=== PATIENT | male | born 1960 | race Caucasian/White ===

== ENCOUNTER 2019-06-05 12:13 | Emergency (ER) | payer MEDICARE ==
[~2019-06-05] VITALS: Ht 172.7 cm; Wt 99.8 kg
[~2019-06-05 12:13] MED LIST: ACHD5005 PO; ALBU17AE23 IH; ASPI-586 PO; CLC500CT PO; CLOP75TA69 PO; FAMO20TA5 PO; HYDR-3820 PO; HYDR1TAB PO; MELO-198 PO; METO-351 PO; OMEP20CA12 PO; PANT40TA2 PO; PRD20T PO; RABE20TA PO; SIMV40TA4 PO; TRAM50TA2 PO
[2019-06-05 12:38] LABS: BASOPHILS % (AUTO) 0 % (0-10); EOSINOPHILS # (AUTO) 0.1 10^3/uL (0.0-0.3); EOSINOPHILS % (AUTO) 1 % (0-10); HEMATOCRIT 46 % (40-54); HEMOGLOBIN 15.3 G/DL (13.3-17.7); LYMPHOCYTES # (AUTO) 1.7 X 10^3 (1.0-4.0); LYMPHOCYTES % (AUTO) 18 % (12-44); MEAN CORPUSCULAR HEMOGLOBIN 30 PG (25-34); MEAN CORPUSCULAR HGB CONC 34 G/DL (32-36); MEAN CORPUSCULAR VOLUME 90 FL (80-99); MEAN PLATELET VOLUME 10.6 FL (7.4-10.4); MONOCYTES # (AUTO) 0.6 X 10^3 (0.0-1.0); MONOCYTES % (AUTO) 6 % (0-12); NEUTROPHILS # (AUTO) 7.5 X 10^3 (1.8-7.8); NEUTROPHILS % (AUTO) 75 % (42-75); PLATELET COUNT 274 10^3/uL (130-400); RED CELL DISTRIBUTION WIDTH 13.8 % (10.0-14.5)
[2019-06-05 12:54] LABS: ALANINE AMINOTRANSFERASE 36 U/L (0-55); ALBUMIN 4.7 GM/DL (3.2-4.5); ALKALINE PHOSPHATASE 89 U/L (40-136); BILIRUBIN,TOTAL 0.3 MG/DL (0.1-1.0); BUN/CREATININE RATIO 14; CALCIUM 10.1 MG/DL (8.5-10.1); CARBON DIOXIDE 22 MMOL/L (21-32); CHLORIDE 104 MMOL/L (98-107); CREATININE SERUM 1.13 MG/DL (0.60-1.30); GFR ESTIMATED > 60; GLUCOSE 125 MG/DL (70-105); POTASSIUM 4.1 MMOL/L (3.6-5.0); SODIUM 139 MMOL/L (135-145); TOTAL PROTEIN 7.6 GM/DL (6.4-8.2)
--- NOTE | 2019-06-05 12:54 | ED EENT ---
History of Present Illness General Chief Complaint: Eye Problems Stated Complaint: BLURRED VISION Nursing Triage Note: PT SENT FROM DR GUARDADO OFFICE WITH COMPLAINT OF BLURRED VISION IN LEFT EYE. PT STATES BLURRED VISION STARTED 8 DAYS AGO. 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 Source: patient Exam Limitations: no limitations (JENNIFER DOUGLAS MD) History of Present Illness Date Seen by Provider: Jun 05, 2019 Time Seen by Provider: 12:19 Initial Comments Here with report of left vision loss over the last 8 days. He was sent over from the optometry clinic after exam today in which they noted concerns of edematous retina on the left. The joint cutter, Dr. Jarrell, was concerned about possibility of giant cell arteritis. He was sent here for further evaluation. Patient notes that he has had increasing vision loss dated day for the last 8 days and hasn't been able to drive for the last 4 days. Had similar problem with the right eye and has significant visual loss better. Timing/Duration: gradual Severity: moderate Location: eye (L) Prearrival Treatment: no prearrival treatment Associated Symptoms: No change in hearing, No facial pain/swelling, No fever (JENNIFER DOUGLAS MD) Allergies and Home Medications Allergies Coded Allergies: No Known Drug Allergies (Verified , 04/29/16) Home Medications Aspirin 81 Mg Tablet., 81 MG PO DAILY, (Reported) Clopidogrel Bisulfate 75 Mg Tablet, 75 MG PO DAILY Prescribed by: SANTHOSH BULLARD on 04/12/16 0943 Hydrocodone/Acetaminophen 1 Each Tablet, 1 EACH PO QID PRN for PAIN, (Reported) Metoprolol Succinate 25 Mg Tab.er.24h, 25 MG PO DAILY, (Reported) Pantoprazole Sodium 40 Mg Tablet., 40 MG PO DAILY Prescribed by: VALENTINA MARS on 05/02/16 0732 Simvastatin 40 Mg Tablet, 40 MG PO DAILY Prescribed by: SANTHOSH BULLARD on 04/12/16 0943 Patient Home Medication List Home Medication List Reviewed: Yes (JENNIFER DOUGLAS MD) Review of Systems Review of Systems Constitutional: see HPI; No chills, No fever Eyes: See HPI, Decreased Acuity; Denies Pain Ears: No Symptoms Reported Respiratory: no symptoms reported Cardiovascular: no symptoms reported Gastrointestinal: no symptoms reported Musculoskeletal: no symptoms reported Neurological: See HPI; Denies Headache, Denies Weakness (JENNIFER DOUGLAS MD) All Other Systems Reviewed Negative Unless Noted: Yes (JENNIFER DOUGLAS MD) Past Bwpjufo-Xfcirz-Kcmwqw Hx Past Med/Social Hx: Reviewed Nursing Past Med/Soc Hx (JENNIFER DOUGLAS MD) Patient Social History Alcohol Use: Regular Use Number of Drinks Today: 0 Alcohol Beverage of Choice: Beer Recreational Drug Use: No Smoking Status: Former Smoker Type Used: Cigarettes, Smokeless Tobacco Former Smoker, Quit: April 12, 1995 Recent Foreign Travel: No Contact w/Someone Who Travel: No Recent Infectious Disease Expo: No (JENNIFER DOUGLAS MD) Immunizations Up To Date Tetanus Booster (TDap): Less than 5yrs PED Vaccines UTD: Yes (JENNIFER DOUGLAS MD) Past Medical History Surgeries: Yes (hernia repair, Broken leg repair, R KNEE repair, HEART CATH) Respiratory: Yes (SOB AT END OF DAY) Cardiac: Yes (HEART CATH-04/13, NO STENTS BUT CLEANED OUT ARTERY) Coronary Artery Disease, Heart Attack, Hypertension Neurological: No Reproductive Disorders: No Gastrointestinal: Yes Gastroesophageal Reflux, Hiatal Hernia Musculoskeletal: Yes (ARTHRITIS) Arthritis, Gout Endocrine: No Cancer: No Psychosocial: No Integumentary: No Blood Disorders: No Adverse Reaction/Blood Tranf: No (JENNIFER DOUGLAS MD) Family Medical History Reviewed Nursing Family Hx (JENNIFER DOUGLAS MD) Cancer Cataract Dementia Family history: Alzheimer's disease Family history: Arthritis Family history: Breast disease Family history: Diabetes mellitus Family history: Glaucoma Family history: Hypertension History of drug abuse No Family History of: Abdominal aortic aneurysm Vimal's disease Alcoholism Aphasia Cancer of colon Chest pain Congenital heart disease Congestive heart failure Cystic fibrosis Dysphagia Family history: Allergy Family history: Asthma Family history: Cardiovascular disease Family history: Coronary thrombosis Family history: Gastrointestinal disease Family history: Osteoporosis Family history: Thyroid disorder Headache Hearing loss Heart disease Hereditary disease History of - anemia History of - disorder History of - respiratory disease Human immunodeficiency virus (HIV) seropositivity Hypercholesterolemia Infertile Kidney disease Malignant neoplasm of lung Myocardial infarction Parkinson's disease Prostate cancer Psychotic disorder Seizure disorder Stroke Tuberculosis Visual impairment Cancer, Diabetes, Hypertension (JENNIFER DOUGLAS MD) Physical Exam Vital Signs Vital Signs - First Documented 06/05/19 12:14 Temp 97.5 Pulse 79 Resp 16 B/P (MAP) 151/86 (107) Pulse Ox 97 O2 Delivery Room Air (DEVORAH BOWMAN MD) Height, Weight, BMI Height: 5'8.00" Weight: 220lbs. 0.0oz. [id number]; 31.9 BMI Method:Stated General Appearance: WD/WN, no apparent distress Eyes: bilateral eye other (bilateral eyes medically dilated prior to presentation here.) Mouth/Throat: normal mouth inspection, pharynx normal Neck: full range of motion, supple Cardiovascular: regular rate, rhythm, no murmur Respiratory: lungs clear, normal breath sounds Gastrointestinal: non tender, soft Neurologic/Psychiatric: alert, oriented x 3, other (normal gait in resolving extremities 4 without difficulty) Skin: normal color, warm/dry (JENNIFER DOUGLAS MD) Progress/Results/Core Measures Results/Orders Lab Results Laboratory Tests Test 06/05/19 12:30 Range/Units White Blood Count 10.0 4.3-11.0 10^3/uL Red Blood Count 5.05 4.35-5.85 10^6/uL Hemoglobin 15.3 13.3-17.7 G/DL Hematocrit 46 40-54 % Mean Corpuscular Volume 90 80-99 FL Mean Corpuscular Hemoglobin 30 25-34 PG Mean Corpuscular Hemoglobin Concent 34 32-36 G/DL Red Cell Distribution Width 13.8 10.0-14.5 % Platelet Count 274 130-400 10^3/uL Mean Platelet Volume 10.6 H 7.4-10.4 FL Neutrophils (%) (Auto) 75 42-75 % Lymphocytes (%) (Auto) 18 12-44 % Monocytes (%) (Auto) 6 0-12 % Eosinophils (%) (Auto) 1 0-10 % Basophils (%) (Auto) 0 0-10 % Neutrophils # (Auto) 7.5 1.8-7.8 X 10^3 Lymphocytes # (Auto) 1.7 1.0-4.0 X 10^3 Monocytes # (Auto) 0.6 0.0-1.0 X 10^3 Eosinophils # (Auto) 0.1 0.0-0.3 10^3/uL Basophils # (Auto) 0.0 0.0-0.1 10^3/uL Erythrocyte Sedimentation Rate 5 0-30 MM/HR Sodium Level 139 135-145 MMOL/L Potassium Level 4.1 3.6-5.0 MMOL/L Chloride Level 104 98-107 MMOL/L Carbon Dioxide Level 22 21-32 MMOL/L Anion Gap 13 5-14 MMOL/L Blood Urea Nitrogen 16 7-18 MG/DL Creatinine 1.13 0.60-1.30 MG/DL Estimat Glomerular Filtration Rate > 60 BUN/Creatinine Ratio 14 Glucose Level 125 H 70-105 MG/DL Calcium Level 10.1 8.5-10.1 MG/DL Corrected Calcium 8.5-10.1 MG/DL Total Bilirubin 0.3 0.1-1.0 MG/DL Aspartate Amino Transf (AST/SGOT) 20 5-34 U/L Alanine Aminotransferase (ALT/SGPT) 36 0-55 U/L Alkaline Phosphatase 89 40-136 U/L C-Reactive Protein High Sensitivity 0.35 0.00-0.50 MG/DL Total Protein 7.6 6.4-8.2 GM/DL Albumin 4.7 H 3.2-4.5 GM/DL (DEVORAH BOWMAN MD) Vital Signs/I&O 06/05/19 12:14 Temp 97.5 Pulse 79 Resp 16 B/P (MAP) 151/86 (107) Pulse Ox 97 O2 Delivery Room Air (DEVORAH BOWMAN MD) Blood Pressure Mean: 107 Progress Progress Note : Progress Note Seen and evaluated. IV, labs and CT head ordered per request of joint cutter including sedimentation rate and CRP. Monitor patient. (JENNIFER DOUGLAS MD) Departure Communication (Admissions) The CT scan returned without any evidence of vascular impairment. Discussed this with Dr. jarrell joint cutter who had referred him here. She will arrange for appointment to be made back [facility] and they will inform the patient (DEVORAH BOWMAN MD) Impression Primary Impression: subacute visual loss Disposition: 01 HOME, SELF-CARE Condition: Stable/Unchanged Departure-Patient Inst. Referrals: [facility] (PCP/Family) Primary Care Physician Add. Discharge Instructions: All discharge instructions reviewed with patient and/or family. Voiced understanding. I have spoken to [facility] and [facility] will be calling you back with a appointment when it has been confirmed. Do not drive JENNIFER DOUGLAS MD Jun 05, 2019 12:54 DEVORAH BOWMAN MD Jun 05, 2019 13:34
[2019-06-05 13:01] LABS: ERYTHROCYTE SEDIMENTATION RATE 5 MM/HR (0-30)
--- NOTE | 2019-06-05 13:08 | Diagnostic Imaging Report ---
PROCEDURE: CT head without contrast. TECHNIQUE: Multiple contiguous axial images were obtained through the brain without the use of intravenous contrast. Auto Exposure Controls were utilized during the CT exam to meet ALARA standards for radiation dose reduction. INDICATION: Blurry vision in the left eye for eight days. History of stroke. COMPARISON: 11/16/2016. FINDINGS: The ventricles and cortical sulci appear age appropriate. There is no midline shift or mass effect. No acute intracranial hemorrhage is seen. There is no CT evidence of acute territorial ischemia. The calvarium is intact. Visualized paranasal sinuses appear clear. IMPRESSION: 1. No acute intracranial hemorrhage or CT evidence of acute territorial ischemia. Dictated by: Dictated on workstation # [id number]
[2019-06-05 14:04] VITALS: BP 142/86
== END 2019-06-05 14:04 | disposition home or self-care (01) ==
LOC: EDUNIT# 12:13 → ER 12:14
DX: H54.7 Unspecified visual loss (principal); I10 Essential (primary) hypertension; I25.10 Atherosclerotic heart disease of native coronary artery without angina pectoris; I25.2 Old myocardial infarction; K21.9 Gastro-esophageal reflux disease without esophagitis; Z87.19 Personal history of other diseases of the digestive system; Z86.73 Personal history of transient ischemic attack (TIA), and cerebral infarction without residual deficits; Z79.82 Long term (current) use of aspirin; Z79.02 Long term (current) use of antithrombotics/antiplatelets; Z87.891 Personal history of nicotine dependence
CPT/HCPCS: 36415; 70450; 80053; 85025; 85652; 86141

== ENCOUNTER 2021-11-04 08:35 | Observation (INO) | payer MEDICARE ==
[~2021-11-04] VITALS: Ht 172 cm; Wt 100.0 kg
[~2021-11-04 08:35] MED LIST changes: +ACHYD1T PO; -HYDR-3820 PO; +SIMV40TA25 PO; -SIMV40TA4 PO
[2021-11-04] MEDS ORDERED: FAMOTIDINE 20MG/2ML IV (PEPCID) IV STA (08:56)
[2021-11-04] MEDS ORDERED: NS IV 1000 ML 1,000 ML IV STA (08:56)
[2021-11-04] MEDS ORDERED: ASPIRIN 81 MG CHEW (CHILDREN'S ASA) PO ONE (09:00)
[2021-11-04] MEDS ORDERED: RT-ALBUTEROL/IPRATROPIUM 3 ML (DUONEB) VIAL INH ONE (09:00)
[2021-11-04] MEDS ORDERED: LIDOCAINE 2% VISCOUS 15 ML UDC PO ONE (09:00)
[2021-11-04] MEDS ORDERED: ANTACID SUSP 30 ML UDC (MYLANTA) PO ONE (09:00)
[2021-11-04] MEDS ORDERED: NITROGLYCERIN 0.4 MG SL TABS BTL 25'S SL PRN (09:00)
--- NOTE | 2021-11-04 09:01 | ED Chest Pain ---
General Chief Complaint: Chest Pain Stated Complaint: CHEST PAIN Source: patient Exam Limitations: no limitations History of Present Illness Date Seen by Provider: Nov 04, 2021 Time Seen by Provider: 08:45 Initial Comments Benji Mayorga is a 61 yo M with a history of CAD, COPD, HTN, T2DM, and GERD who presents via private conveyance today for complaint of chest pain and cough. Patient states he woke up this morning after feeling like he aspirated his acid reflux. He describes a sharp L sided chest pain with associated cough, sob, and vomiting. Rates the pain 10/10 at its worst. Pain worsens with cough and he took nitro before coming to the ED which temporarily helped. Pain does not radiate. Pt states he had an episode like this in the past when he was told he was actually having a PA. Also reports recent URI treated with azithromycin. Denies any recent fevers, chills, adbominal pain, gi/gu changes. 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 Associated Symptoms: abdominal pain, heartburn, nausea/vomiting, shortness of breath Allergies and Home Medications Allergies Coded Allergies: No Known Drug Allergies (Verified , 04/29/16) Patient Home Medication List Aspirin (Aspir 81) 81 Mg Tablet., 81 MG PO DAILY, (Reported) Entered as Reported by: ASHLY MONTANA on 04/12/16716 Clopidogrel Bisulfate (Plavix) 75 Mg Tablet, 75 MG PO DAILY Prescribed by: SANTHOSH BULLARD on 04/12/16 0943 Hydrocodone Bit/Acetaminophen (HYDROcodone/APAP 10/325 TABLET) 1 Each Tablet, 1 EACH PO QID PRN for PAIN, (Reported) Entered as Reported by: ASHLY MONTANA on 04/12/16716 Metoprolol Succinate (Toprol Xl) 25 Mg Tab.er.24h, 25 MG PO DAILY, (Reported) Entered as Reported by: ASHLY MONTANA on 04/12/16716 Pantoprazole Sodium (Protonix) 40 Mg Tablet., 40 MG PO DAILY Prescribed by: VALENTINA MARS on 05/02/16 0732 Simvastatin (Simvastatin) 40 Mg Tablet, 40 MG PO DAILY Prescribed by: SANTHOSH BULLARD on 04/12/16 0943 Review of Systems Review of Systems Constitutional: No chills, No diaphoresis EENTM: Blurred Vision (normal for him) Respiratory: Cough, Shortness of Air Cardiovascular: Chest Pain Gastrointestinal: Abdominal Pain, Nausea, Vomiting Genitourinary: Denies Burning, Denies Discharge Musculoskeletal: No back pain; gout Skin: No change in color, No change in hair/nails Psychiatric/Neurological: Denies Anxiety, Denies Depressed Endocrine: Denies Excessive Sweating, Denies Flushing Hematologic/Lymphatic: Denies Easy Bruising, Denies Swollen Glands Past Mcjguzf-Ptzutp-Knsumj Hx Immunizations Up To Date Tetanus Booster (TDap): Less than 5yrs PED Vaccines UTD: Yes Past Medical History Surgeries: Yes (hernia repair, Broken leg repair, R KNEE repair, HEART CATH) Respiratory: Yes (SOB AT END OF DAY) Cardiac: Yes (HEART CATH-04/13, NO STENTS BUT CLEANED OUT ARTERY) Coronary Artery Disease, Heart Attack, Hypertension Neurological: No Reproductive Disorders: No Gastrointestinal: Yes Gastroesophageal Reflux, Hiatal Hernia Musculoskeletal: Yes (ARTHRITIS) Arthritis, Gout Endocrine: No Cancer: No Psychosocial: No Integumentary: No Blood Disorders: No Adverse Reaction/Blood Tranf: No Family Medical History Cancer Cataract Dementia Family history: Alzheimer's disease Family history: Arthritis Family history: Breast disease Family history: Diabetes mellitus Family history: Glaucoma Family history: Hypertension History of drug abuse No Family History of: Abdominal aortic aneurysm Denver's disease Alcoholism Aphasia Cancer of colon Chest pain Congenital heart disease Congestive heart failure Cystic fibrosis Dysphagia Family history: Allergy Family history: Asthma Family history: Cardiovascular disease Family history: Coronary thrombosis Family history: Gastrointestinal disease Family history: Osteoporosis Family history: Thyroid disorder Headache Hearing loss Heart disease Hereditary disease History of - anemia History of - disorder History of - respiratory disease Human immunodeficiency virus (HIV) seropositivity Hypercholesterolemia Infertile Kidney disease Malignant neoplasm of lung Myocardial infarction Parkinson's disease Prostate cancer Psychotic disorder Seizure disorder Stroke Tuberculosis Visual impairment Cancer, Diabetes, Hypertension Physical Exam Vital Signs Capillary Refill : Height, Weight, BMI Height: 5'8.00" Weight: 220lbs. 0.0oz. [id number]; 31.9 BMI Method:Stated General Appearance: Chronically ill, Moderate Distress HEENT: Normal ENT Inspection, Pharynx Normal Neck: Non Tender, Supple Respiratory: Lungs Clear, Normal Breath Sounds Cardiovascular: Normal Peripheral Pulses, Tachycardia Gastrointestinal: Normal Bowel Sounds, Tenderness (epigastric) Extremity: Non Tender, No Calf Tenderness Neurologic/Psychiatric: Alert, Oriented x3, No Motor/Sensory Deficits, Normal Mood/Affect, automotive sales executive II-XII Norm as Tested Skin: Normal Color, Warm/Dry Lymphatic: No Adenopathy Departure Departure-Patient Inst. Referrals: [facility] (PCP/Family) Primary Care Physician NEDRA REGAN MED STUDENT Nov 04, 2021 09:01
--- NOTE | 2021-11-04 09:04 | ED Chest Pain ---
General Chief Complaint: Chest Pain Stated Complaint: CHEST PAIN Source: patient, family (lo daughter) Exam Limitations: no limitations History of Present Illness Date Seen by Provider: Nov 04, 2021 Time Seen by Provider: 08:40 Initial Comments Patient ER by private conveyance with chief complaint of being awoken from sleep about 745 with regurgitating/aspirating some GERD which resulted and chest pain. He received a dose of nitroglycerin x1 which helped. He takes aspirin on a daily basis but has not had any today. He is not on Plavix. 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 Chest pain on deep inspiration coughing and wheezing. He has a history of COPD, hypertension, hyperlipidemia and diabetes. No stents. No fevers or chills. He says the last time this happened when he aspirated some of his acid reflux he had a heart attack. Does not wear oxygen at baseline. Allergies and Home Medications Allergies Coded Allergies: No Known Drug Allergies (Verified , 04/29/16) Patient Home Medication List Home Medication List Reviewed: Yes Albuterol Sulfate (Proair Hfa) 1 Puff Puff, 2 PUFF IH Q6H PRN for SHORTNESS OF BREATH, (Reported) Entered as Reported by: FABBY DAVIS on 11/04/211535 Last Action: Reviewed Aspirin (Aspirin EC) 81 Mg Tablet.dr, 81 MG PO DAILY, (Reported) Entered as Reported by: FABBY DAVIS on 11/04/211535 Last Action: Reviewed Calcium Carbonate (Tums) 300 Mg Tab.chew, 300-600 MG PO Q6H PRN for INDIGESTION, (Reported) Entered as Reported by: FABBY DAVIS on 11/04/211535 Last Action: Reviewed Canagliflozin (Invokana) 100 Mg Tablet, 100 MG PO DAILY, (Reported) Entered as Reported by: FABBY DAVIS on 11/04/211535 Last Action: Reviewed Hydrocodone/Acetaminophen (Hydrocodone-Acetamin 10-325 mg) 1 Each Tablet, 1 EACH PO Q6H PRN for PAIN-MODERATE (5-7), (Reported) Entered as Reported by: FABBY DAVIS on 11/04/211535 Last Action: Reviewed Mag Hydrox/Al Hydrox/Simeth (Mylanta Suspension) 30 Ml Oral.susp, 30 ML PO QID PRN for INDIGESTION, (Reported) Entered as Reported by: FABBY DAVIS on 11/04/21 154 Last Action: Reviewed Metformin HCl (Metformin HCl ER) 500 Mg Tab.er.24, 1,000 MG PO BID, (Reported) Entered as Reported by: FABBY DAVIS on 11/04/211537 Last Action: Reviewed Metoprolol Succinate (Metoprolol Succinate) 100 Mg Tab.er.24h, 100 MG PO BID, (Reported) Entered as Reported by: FABBY DAVIS on 11/04/211535 Last Action: Reviewed Nitroglycerin (Nitroglycerin) 0.4 Mg Tab.subl, 0.4 MG SL UD PRN for CHEST PAIN, (Reported) Entered as Reported by: FABBY DAVIS on 11/04/211535 Last Action: Reviewed Pantoprazole Sodium (Pantoprazole Sodium) 20 Mg Tablet.dr, 20 MG PO DAILY, (Reported) Entered as Reported by: FABBY DAVIS on 11/04/211535 Last Action: Reviewed Discontinued Medications Aspirin (Aspir 81) 81 Mg Tablet.dr, 81 MG PO DAILY, (Reported) Discontinued Reason: No Longer Taking Entered as Reported by: ASHLY MONTANA on 04/12/16716 Last Action: Discontinued Clopidogrel Bisulfate (Plavix) 75 Mg Tablet, 75 MG PO DAILY Discontinued Reason: No Longer Taking Prescribed by: SANTHOSH FISHER on 04/12/16942 Last Action: Discontinued Hydrocodone Bit/Acetaminophen (HYDROcodone/APAP 10/325 TABLET) 1 Each Tablet, 1 EACH PO QID PRN for PAIN, (Reported) Discontinued Reason: No Longer Taking Entered as Reported by: ASHLY MONTANA on 04/12/16716 Last Action: Discontinued Metoprolol Succinate (Toprol Xl) 25 Mg Tab.er.24h, 25 MG PO DAILY, (Reported) Discontinued Reason: No Longer Taking Entered as Reported by: ASHLY MONTANA on 04/12/16716 Last Action: Discontinued Pantoprazole Sodium (Protonix) 40 Mg Tablet.dr, 40 MG PO DAILY Discontinued Reason: No Longer Taking Prescribed by: VALENTINA MARS on 05/02/16731 Last Action: Discontinued Simvastatin (Simvastatin) 40 Mg Tablet, 40 MG PO DAILY Discontinued Reason: No Longer Taking Prescribed by: SANTHOSH FISHER on 04/12/16 0943 Last Action: Discontinued Review of Systems Review of Systems Constitutional: No chills, No malaise EENTM: No Blurred Vision, No Double Vision Respiratory: Cough, Shortness of Air Cardiovascular: Chest Pain; Denies Lightheadedness Gastrointestinal: See HPI; Denies Abdominal Pain, Denies Constipated, Denies Diarrhea, Denies Nausea Genitourinary: Denies Burning, Denies Discharge Musculoskeletal: No back pain, No joint pain All Other Systems Reviewed Negative Unless Noted: Yes Past Qnsnoxo-Zqunsh-Gpgohg Hx Patient Social History Tobacco Use?: No Use of E-Cig and/or Vaping dev: No Substance use?: No Immunizations Up To Date Tetanus Booster (TDap): Less than 5yrs PED Vaccines UTD: Yes Past Medical History Surgeries: Yes (hernia repair, Broken leg repair, R KNEE repair, HEART CATH) Respiratory: Yes (SOB AT END OF DAY) Cardiac: Yes (HEART CATH-04/13, NO STENTS BUT CLEANED OUT ARTERY) Coronary Artery Disease, Heart Attack, Hypertension Neurological: No Reproductive Disorders: No Gastrointestinal: Yes Gastroesophageal Reflux, Hiatal Hernia Musculoskeletal: Yes (ARTHRITIS) Arthritis, Gout Endocrine: No Cancer: No Psychosocial: No Integumentary: No Blood Disorders: No Adverse Reaction/Blood Tranf: No Family Medical History Cancer Cataract Dementia Family history: Alzheimer's disease Family history: Arthritis Family history: Breast disease Family history: Diabetes mellitus Family history: Glaucoma Family history: Hypertension History of drug abuse No Family History of: Abdominal aortic aneurysm Vimal's disease Alcoholism Aphasia Cancer of colon Chest pain Congenital heart disease Congestive heart failure Cystic fibrosis Dysphagia Family history: Allergy Family history: Asthma Family history: Cardiovascular disease Family history: Coronary thrombosis Family history: Gastrointestinal disease Family history: Osteoporosis Family history: Thyroid disorder Headache Hearing loss Heart disease Hereditary disease History of - anemia History of - disorder History of - respiratory disease Human immunodeficiency virus (HIV) seropositivity Hypercholesterolemia Infertile Kidney disease Malignant neoplasm of lung Myocardial infarction Parkinson's disease Prostate cancer Psychotic disorder Seizure disorder Stroke Tuberculosis Visual impairment Cancer, Diabetes, Hypertension Physical Exam Vital Signs Vital Signs - First Documented 11/04/21 11/04/21 08:36 08:55 Temp 36.0 Pulse 123 Resp 18 B/P (MAP) 121/110 (114) O2 Delivery Room Air O2 Flow Rate 2.00 FiO2 98 Capillary Refill : Height, Weight, BMI Height: 5'8.00" Weight: 220lbs. 0.0oz. 99.765050gr; 31.9 BMI Method:Stated General Appearance: Anxious, Moderate Distress, Obese HEENT: PERRL/EOMI, Pharynx Normal; No Moist Mucous Membranes Neck: Full Range of Motion, Normal Inspection Respiratory: Chest Non Tender, No Accessory Muscle Use, Respiratory Distress (Mild to moderate with oxygen saturations 98% and tachypnea, 30 breaths/min) Cardiovascular: Regular Rate, Rhythm, Normal Peripheral Pulses Gastrointestinal: Normal Bowel Sounds, Non Tender, Soft Extremity: Normal Capillary Refill, Normal Inspection, Normal Range of Motion, No Pedal Edema Neurologic/Psychiatric: Alert, Oriented x3, No Motor/Sensory Deficits Skin: Normal Color, Warm/Dry Progress/Results/Core Measures Results/Orders Lab Results Laboratory Tests Test 11/04/21 08:58 11/04/21 09:05 Range/Units White Blood Count 11.4 H 4.3-11.0 10^3/uL Red Blood Count 5.24 4.30-5.52 10^6/uL Hemoglobin 15.8 13.3-17.7 g/dL Hematocrit 48 40-54 % Mean Corpuscular Volume 92 80-99 fL Mean Corpuscular Hemoglobin 30 25-34 pg Mean Corpuscular Hemoglobin Concent 33 32-36 g/dL Red Cell Distribution Width 13.0 10.0-14.5 % Platelet Count 347 130-400 10^3/uL Mean Platelet Volume 10.9 9.0-12.2 fL Immature Granulocyte % (Auto) 1 % Neutrophils (%) (Auto) 55 42-75 % Lymphocytes (%) (Auto) 36 12-44 % Monocytes (%) (Auto) 7 0-12 % Eosinophils (%) (Auto) 1 0-10 % Basophils (%) (Auto) 0 0-10 % Neutrophils # (Auto) 6.2 1.8-7.8 10^3/uL Lymphocytes # (Auto) 4.1 H 1.0-4.0 10^3/uL Monocytes # (Auto) 0.8 0.0-1.0 10^3/uL Eosinophils # (Auto) 0.2 0.0-0.3 10^3/uL Basophils # (Auto) 0.0 0.0-0.1 10^3/uL Immature Granulocyte # (Auto) 0.1 0.0-0.1 10^3/uL Prothrombin Time 12.9 12.2-14.7 SEC INR Comment 0.9 0.8-1.4 Activated Partial Thromboplast Time 30 24-35 SEC Sodium Level 135 135-145 MMOL/L Potassium Level 4.1 3.6-5.0 MMOL/L Chloride Level 101 98-107 MMOL/L Carbon Dioxide Level 18 L 21-32 MMOL/L Anion Gap 16 H 5-14 MMOL/L Blood Urea Nitrogen 11 7-18 MG/DL Creatinine 1.31 H 0.60-1.30 MG/DL Estimat Glomerular Filtration Rate 55 BUN/Creatinine Ratio 8 Glucose Level 298 H 70-105 MG/DL Calcium Level 9.4 8.5-10.1 MG/DL Corrected Calcium 9.1 8.5-10.1 MG/DL Magnesium Level 2.7 H 1.6-2.4 MG/DL Total Bilirubin 0.4 0.1-1.0 MG/DL Aspartate Amino Transf (AST/SGOT) 15 5-34 U/L Alanine Aminotransferase (ALT/SGPT) 21 0-55 U/L Alkaline Phosphatase 115 40-136 U/L Myoglobin 30.6 10.0-92.0 NG/ML Troponin I < 0.028 <0.028 NG/ML B-Type Natriuretic Peptide < 10.0 <100.0 PG/ML Total Protein 7.6 6.4-8.2 GM/DL Albumin 4.4 3.2-4.5 GM/DL Lipase 35 8-78 U/L Blood Gas Puncture Site RT RAD Blood Gas Patient Temperature 36.0 Arterial Blood pH 7.42 7.37-7.43 Arterial Blood Partial Pressure CO2 30 L 35-45 MMHG Arterial Blood Partial Pressure O2 91 79-93 MMHG Arterial Blood HCO3 19 L 23-27 MMOL/L Arterial Blood Total CO2 20.2 L 21.0-31.0 MMOL/L Arterial Blood Oxygen Saturation 98 94-100 % Arterial Blood Base Excess -4.6 L -2.5-2.5 MMOL/L Ayan Test YES-POS Blood Gas Ventilator Setting NO Blood Gas Inspired Oxygen 2 L My Orders Orders - RAMSES SMALL Albuterol/Ipra Inhalation Soln (Duoneb I (11/04/21 09:00) Svn Small Volume Nebulizer (11/04/21 08:46) Cbc With Automated Diff (11/04/21 08:56) Magnesium (11/04/21 08:56) Chest 1 View, Ap/Pa Only (11/04/21 08:56) Ekg Tracing (11/04/21 08:56) Comprehensive Metabolic Panel (11/04/21 08:56) Myoglobin Serum (11/04/21 08:56) Protime With Inr (11/04/21 08:56) Partial Thromboplastin Time (11/04/21 08:56) O2 (11/04/21 08:56) Monitor-Rhythm Ecg Trace Only (11/04/21 08:56) Lipid Panel (11/05/21 06:00) Ed Iv/Invasive Line Start (11/04/21 08:56) Lipase (11/04/21 08:56) Bnp [place] (11/04/21 08:56) Troponin I [place] (11/04/21 08:56) Nitroglycerin 0.4 Mg Btl 25's (Nitrostat (11/04/21 09:00) Aspirin Chewable Tablet (Baby Aspirin Ch (11/04/21 09:00) Lidocaine 2% Viscous 15 Ml (Xylocaine Vi (11/04/21 09:00) Ns Iv 1000 Ml (Sodium Chloride 0.9%) (11/04/21 08:56) Antacid Suspension (Mylanta Suspension (11/04/21 09:00) Famotidine Injection (Pepcid Injection) (11/04/21 08:56) Arterial Blood Gas (11/04/21 09:02) Piperacillin Sodium/Tazobactam (Zosyn Vi (11/04/21 09:45) Medications Given in ED Current Medications Medications Dose Ordered Sig/Natanael Route Start Time Stop Time Status Last Admin Dose Admin Al Hydrox/Mg Hydrox/Simethicone 30 ml ONCE ONCE PO 11/04/21 09:00 11/04/21 09:01 DC 11/04/21 09:23 30 ML Albuterol/ Ipratropium 3 ml ONCE ONCE INH 11/04/21 09:00 11/04/21 09:01 DC 11/04/21 08:55 3 ML Aspirin 324 mg ONCE ONCE PO 11/04/21 09:00 11/04/21 09:01 DC 11/04/21 09:23 324 MG Lidocaine HCl 15 ml ONCE ONCE PO 11/04/21 09:00 11/04/21 09:01 DC 11/04/21 09:23 15 ML Nitroglycerin 0.4 mg UD PRN SL 11/04/21 09:00 11/04/21 11:20 DC 11/04/21 09:23 0.4 MG Piperacillin Sod/ Tazobactam Sod 4.5 gm/Sodium Chloride 100 ml @ 200 mls/hr ONCE ONCE IV 11/04/21 09:45 11/04/21 10:14 DC 11/04/21 09:58 200 MLS/HR Vital Signs/I&O 11/04/21 11/04/21 08:36 08:55 Temp 36.0 Pulse 123 Resp 18 B/P (MAP) 121/110 (114) O2 Delivery Room Air Nasal Cannula O2 Flow Rate 2.00 FiO2 98 Progress Progress Note : Time: 09:02 Progress Note Suspect aspiration or microaspiration. We will get a chest x-ray give him some aspirin check some troponins. Atypical angina? Give a liter of fluids, GI cocktail and another nitroglycerin if it will help. Blood pressure 160s over 100. Initial ECG Impression Date: Nov 04, 2021 Initial ECG Impression Time: 08:38 Initial ECG Rate: 107 Initial ECG Rhythm: S.Tach Initial ECG Intervals: Normal Initial ECG Impression: Normal Comment Sinus tachycardia without ST elevation or depression Diagnostic Imaging Diagonstic Imaging: Xray Plain Films/CT/US/NM/MRI: chest Reviewed: Reviewed by Me Departure Communication (Admissions) Time/Spoke to Admitting Phy: 12:00 Discussed the case with Dr. Miranda and she agrees to observe the patient with consultation to cardiology. Zosyn IV Time/Spoke to Consulting Phy: 12:00 Discussed the case with Dr. Fisher and he agrees to consult on the case continuing all medications Impression Primary Impression: Chest pain Qualified Codes: R07.9 - Chest pain, unspecified Additional Impression: Aspiration pneumonia Qualified Codes: J69.0 - Pneumonitis due to inhalation of food and vomit Disposition: ADMITTED INPATIENT Condition: Stable Admissions Decision to Admit Reason: Admit from ER (General) Decision to Admit/Date: Nov 04, 2021 Time/Decision to Admit Time: 12:00 Departure-Patient Inst. Referrals: [facility] (PCP/Family) Primary Care Physician RAMSES SMALL Nov 04, 2021 09:04
[2021-11-04 09:11] LABS: ABG BASE EXCESS -4.6 MMOL/L (-2.5-2.5); ABG OXYGEN SATURATION 98 % (94-100); ABG PCO2 30 MMHG (35-45); ABG PH 7.42 (7.37-7.43); ABG PO2 91 MMHG (79-93); ABG TCO2 20.2 MMOL/L (21.0-31.0)
[2021-11-04 09:12] LABS: BASOPHILS % (AUTO) 0 % (0-10); EOSINOPHILS # (AUTO) 0.2 10^3/uL (0.0-0.3); EOSINOPHILS % (AUTO) 1 % (0-10); HEMATOCRIT 48 % (40-54); HEMOGLOBIN 15.8 g/dL (13.3-17.7); LYMPHOCYTES # (AUTO) 4.1 10^3/uL (1.0-4.0); LYMPHOCYTES % (AUTO) 36 % (12-44); MEAN CORPUSCULAR HEMOGLOBIN 30 pg (25-34); MEAN CORPUSCULAR HGB CONC 33 g/dL (32-36); MEAN CORPUSCULAR VOLUME 92 fL (80-99); MEAN PLATELET VOLUME 10.9 fL (9.0-12.2); MONOCYTES # (AUTO) 0.8 10^3/uL (0.0-1.0); MONOCYTES % (AUTO) 7 % (0-12); NEUTROPHILS # (AUTO) 6.2 10^3/uL (1.8-7.8); NEUTROPHILS % (AUTO) 55 % (42-75); PLATELET COUNT 347 10^3/uL (130-400); WHITE BLOOD COUNT 11.4 10^3/uL (4.3-11.0)
[2021-11-04 09:14] LABS: ALLENS TEST YES-POS; INSPIRED O2 2 L; VENTILATOR NO
[2021-11-04 09:20] LABS: ALBUMIN 4.4 GM/DL (3.2-4.5); POTASSIUM 4.1 MMOL/L (3.6-5.0)
[2021-11-04 09:21] LABS: CALCIUM 9.4 MG/DL (8.5-10.1)
[2021-11-04 09:22] LABS: INR 0.9 (0.8-1.4); PROTHROMBIN TIME PATIENT 12.9 SEC (12.2-14.7)
[2021-11-04 09:23] LABS: TOTAL PROTEIN 7.6 GM/DL (6.4-8.2)
[2021-11-04 09:24] LABS: BILIRUBIN,TOTAL 0.4 MG/DL (0.1-1.0)
[2021-11-04 09:26] LABS: CREATININE SERUM 1.31 MG/DL (0.60-1.30)
--- NOTE | 2021-11-04 09:26 | Diagnostic Imaging Report ---
INDICATION: Chest pain AP view of chest is obtained with comparison made to study of 04/09/2011. FINDINGS: Heart size and pulmonary vascularity are within normal limits, and the lungs are clear, bilaterally. IMPRESSION: Unremarkable chest. Dictated by: Dictated on workstation # [id number]
[2021-11-04 09:29] LABS: MAGNESIUM 2.7 MG/DL (1.6-2.4)
[2021-11-04] MEDS ORDERED: PIPERACILLIN SODIUM/TAZOBACTAM 4.5 GM in NS (IVPB) 100 ML IV ONE (09:45)
--- NOTE | 2021-11-04 11:08 | Consultation-Cardiology ---
HPI-Cardiology Cardiology Consultation: Date of Consultation 11/04/21 Time Seen by a Provider: 11:05 Date of Admission 11-04-21 Attending Physician Jolie Miranda MD Admitting Physician [place] Consulting Physician Mu Fisher MD HPI: Chief Complaint: Chest pain Mr. Mayorga is a 61 yr old male admitted to [facility] from the ED with c/o chest pain. He reports he woke up from sleep this morning with acid reflux; which he chronically has. He reports he feels he has aspirated. He reports cough. He reports "burning in his esophagus". He states he is having left sided chest discomfort when he coughs. He reports he took a nitro sublingual for the burning and pressure in his chest at home which did not provide any relief. He reports he has chronic SOB which has been progressive. He reports he has episodes of left sided chest pain approx twice a month for which he will take a nitro sublingual at times. He reports the discomfort is a pressure, assoc diaphoresis at times with the discomfort. He denies any change in his chronic SOB during chest discomfort episodes. He reports if he does not take a nitro the discomfort will resolve within about 20-30 minutes. The discomfort occurs without r/t activity or emotional stress. He denies any LE swelling. He reports he continues to chew tobacco. No c/o diarrhea. No c/o fever or chills. Review of Systems-Cardiology Review of Systems Constitutional: No chills, No fever, No malaise Eyes: No vision change Ears/Nose/Throat: No epistaxis, No recent hearing loss Respiratory: As described under HPI Cardiovascular: As described under HPI Gastrointestinal: As described under HPI Genitourinary: No dysuria, No hematuria Musculoskeletal: back pain (chronic) Skin: No rash on exposed areas, No ulcerations on exposed areas Psychiatric/Neurological: No anxiety, No depression, No seizure, No focal weakness, No syncope Hematologic: No bleeding abnormalities All Other Systems Reviewed Negative Unless Noted: Yes LZM-Yqzgrc-Bfbhwf Hx Patient Social History Smoking Status: Never a Smoker Have you traveled recently?: No Alcohol Use?: Yes Pt feels they are or have been: No Immunizations Up To Date Tetanus Booster (TDap): Less than 5yrs Past Medical History PMH As described under Assessment. Family Medical History Family Medical History: No reported family h/o CAD or SCD Family History: Relation not specified for: Cancer Cataract Dementia Family history: Alzheimer's disease Family history: Arthritis Family history: Breast disease Family history: Diabetes mellitus Family history: Glaucoma Family history: Hypertension History of drug abuse Allergies and Home Medications Allergies Coded Allergies: No Known Drug Allergies (Verified , 04/29/16) Patient Home Medication List Albuterol Sulfate (Proair Hfa) 1 Puff Puff, 2 PUFF IH Q6H PRN for SHORTNESS OF BREATH, (Reported) Entered as Reported by: FABBY DAVIS on 11/04/211535 Last Action: Reviewed Aspirin (Aspirin EC) 81 Mg Tablet.dr, 81 MG PO DAILY, (Reported) Entered as Reported by: FABBY DAVIS on 11/04/211535 Last Action: Reviewed Calcium Carbonate (Tums) 300 Mg Tab.chew, 300-600 MG PO Q6H PRN for INDIGESTION, (Reported) Entered as Reported by: FABBY DAVIS on 11/04/211535 Last Action: Reviewed Canagliflozin (Invokana) 100 Mg Tablet, 100 MG PO DAILY, (Reported) Entered as Reported by: FABBY DAVIS on 11/04/211535 Last Action: Reviewed Hydrocodone/Acetaminophen (Hydrocodone-Acetamin 10-325 mg) 1 Each Tablet, 1 EACH PO Q6H PRN for PAIN-MODERATE (5-7), (Reported) Entered as Reported by: FABBY DAVIS on 11/04/211535 Last Action: Reviewed Mag Hydrox/Al Hydrox/Simeth (Mylanta Suspension) 30 Ml Oral.susp, 30 ML PO QID PRN for INDIGESTION, (Reported) Entered as Reported by: FABBY DAVIS on 11/04/211541 Last Action: Reviewed Metformin HCl (Metformin HCl ER) 500 Mg Tab.er.24, 1,000 MG PO BID, (Reported) Entered as Reported by: FABBY DAVIS on 11/04/211537 Last Action: Reviewed Metoprolol Succinate (Metoprolol Succinate) 100 Mg Tab.er.24h, 100 MG PO BID, (Reported) Entered as Reported by: FABBY DAVIS on 11/04/211535 Last Action: Reviewed Nitroglycerin (Nitroglycerin) 0.4 Mg Tab.subl, 0.4 MG SL UD PRN for CHEST PAIN, (Reported) Entered as Reported by: FABBY DAVIS on 11/04/211535 Last Action: Reviewed Pantoprazole Sodium (Pantoprazole Sodium) 20 Mg Tablet., 20 MG PO DAILY, (Reported) Entered as Reported by: FABBY DAVIS on 11/04/211535 Last Action: Reviewed Discontinued Medications Aspirin (Aspir 81) 81 Mg Tablet., 81 MG PO DAILY, (Reported) Discontinued Reason: No Longer Taking Entered as Reported by: ASHLY MONTANA on 04/12/16716 Last Action: Discontinued Clopidogrel Bisulfate (Plavix) 75 Mg Tablet, 75 MG PO DAILY Discontinued Reason: No Longer Taking Prescribed by: MU FISHER on 04/12/16942 Last Action: Discontinued Hydrocodone Bit/Acetaminophen (HYDROcodone/APAP 10/325 TABLET) 1 Each Tablet, 1 EACH PO QID PRN for PAIN, (Reported) Discontinued Reason: No Longer Taking Entered as Reported by: ASHLY MONTANA on 04/12/16716 Last Action: Discontinued Metoprolol Succinate (Toprol Xl) 25 Mg Tab.er.24h, 25 MG PO DAILY, (Reported) Discontinued Reason: No Longer Taking Entered as Reported by: ASHLY MONTANA on 04/12/16716 Last Action: Discontinued Pantoprazole Sodium (Protonix) 40 Mg Tablet., 40 MG PO DAILY Discontinued Reason: No Longer Taking Prescribed by: VALENTINA MARS on 05/02/16731 Last Action: Discontinued Simvastatin (Simvastatin) 40 Mg Tablet, 40 MG PO DAILY Discontinued Reason: No Longer Taking Prescribed by: MU FISHER on 04/12/16942 Last Action: Discontinued Physical Exam-Cardiology Physical Exam Vital Signs/I&O 11/04/21 11/05/21 11/05/21 23:06 01:00 03:00 Temp 36.8 36.6 Pulse 74 68 68 Resp 18 20 B/P (MAP) 146/82 (103) 163/90 (114) Pulse Ox 96 96 O2 Delivery Room Air Room Air 11/05/21 00:00 Intake Total 1580 ml Balance 1580 ml Capillary Refill : Less Than 3 Seconds Constitutional: AAO x 3, well-developed, well-nourished HEENT: PERRL, hearing is well preserved, oral hygience is good Neck: No carotid bruit; carotid pulses are 2 + bilaterally Respiratory: No accessory muscle use, No respiratory distress; chest expansion is symmetric, chest is bilaterally symmetric, lungs clear to auscultation Cardiovascular: regular rate-rhythm; No JVD; S1 and S2 Gastrointestinal: No tender; soft, round, audible bowel sounds Extremities: no lower extremity edema bilateral Neurologic/Psychiatric: grossly intact (moves all extremities) Skin: No rash on exposed areas, No ulcerations on exposed areas Data Review Labs Laboratory Tests 11/04/21 15:11: Troponin I < 0.028 11/04/21 20:56: Troponin I < 0.028 11/05/21 05:51: White Blood Count 8.8, Red Blood Count 4.72, Hemoglobin 14.1, Hematocrit 43, Mean Corpuscular Volume 91, Mean Corpuscular Hemoglobin 30, Mean Corpuscular Hemoglobin Concent 33, Red Cell Distribution Width 13.2, Platelet Count 268, Mean Platelet Volume 10.7, Immature Granulocyte % (Auto) 0, Neutrophils (%) (Auto) 60, Lymphocytes (%) (Auto) 31, Monocytes (%) (Auto) 6, Eosinophils (%) (Auto) 2, Basophils (%) (Auto) 0, Neutrophils # (Auto) 5.3, Lymphocytes # (Auto) 2.8, Monocytes # (Auto) 0.6, Eosinophils # (Auto) 0.2, Basophils # (Auto) 0.0, Immature Granulocyte # (Auto) 0.0, Sodium Level 136, Potassium Level 3.8, Chloride Level 105, Carbon Dioxide Level 19L, Anion Gap 12, Blood Urea Nitrogen 9, Creatinine 1.12, Estimat Glomerular Filtration Rate 66, BUN/Creatinine Ratio 8, Glucose Level 199H, Calcium Level 9.2, Triglycerides Level 340H, Cholesterol Level 190, LDL Cholesterol Direct 94, VLDL Cholesterol 68H, HDL Cholesterol 33L Microbiology 11/04/21 Gram Stain - Final, Resulted 11/04/21 Sputum Culture, Resulted Pending Radiology NAME: PARMJIT [facility] REC#: [id number] PT STATUS: REG ER : 1960 PHYSICIAN: RAMSES SMALL MD ADMIT DATE: 11/04/21/ER Signed Date of Exam:11/04/21 CHEST 1 VIEW, AP/PA ONLY INDICATION: Chest pain AP view of chest is obtained with comparison made to study of 04/09/2011. FINDINGS: Heart size and pulmonary vascularity are within normal limits, and the lungs are clear, bilaterally. IMPRESSION: Unremarkable chest. Dictated by: Dictated on workstation # [id number] Dict: 11/04/21923 Trans: 11/04/21936 CV [id number] Interpreted by: LIBERTAD DILL MD Electronically signed by: LIBERTAD DILL MD 11/04/21936 ECG Impression ECG Initial ECG Rhythm: Normal Sinus A/P-Cardiology Assessment/Admission Diagnosis Chest pain of undetermined etiology - No evidence of ACS thus far Cardiac cath of April 12, 2016 showed CAD, primarily consisting of 50-60% mid v essel stenosis of the LAD with FFR of 0.87, indicating hemodynamic non- significance. Normal global LV systolic function with an ejection fraction of approx 60%. Mild elevation of LVEDP. No significant MR HTN HLP - statin therapy - managed by PCP DM 2 - managed by PCP SANJEEV Chronic narcotic analgesic use d/t chronic body pains GERD Tobaccoism, - continuing chew tobacco - cessation advised - quit smoking in 1994 Discussion and Recomendations Chest discomfort of undetermined etiology - no evidence of ACS thus far - advise MPI to eval perfusion d/t h/o, c/o and risk factors as noted above Echocardigoram to eval structure and function Management of possible aspiration pneumonia per medical services Management of GERD per medical services Continue home medication regimen including antihypertensives ASA 81mg daily Monitor lab Replace electrolytes as indicated Clinical Quality Measures AMI/AHF: ASA po Prior to arrival: NARINDER Goldman ENVIRONMENTAL SERVICES MANAGER Nov 04, 2021 11:08
[2021-11-04] MEDS ORDERED: ONDANSETRON 4 MG/2 ML (SDV) Z0FRAN IV PRN (11:30)
[2021-11-04] MEDS ORDERED: CATHETER FLUSH 10 ML SYR IV PRN (11:30)
[2021-11-04] MEDS ORDERED: REGADENOSON 0.4 MG/5 ML SYR (LEXISCAN) IV ONE (11:45)
[2021-11-04 12:00] VITALS: BP 144/81
[2021-11-04] MEDS ORDERED: ASPIRIN 81 MG CHEW (CHILDREN'S ASA) PO NR (12:00)
--- NOTE | 2021-11-04 13:47 | Diagnostic Imaging Report ---
INDICATION: Cough. TIME OF EXAM: 1:22 PM Comparison is made with prior chest from earlier same day. FINDINGS; Heart size normal. Lungs appear to be clear. No infiltrates are detected. There is no effusion or pneumothorax. The pulmonary vascularity is normal. IMPRESSION: No acute cardiopulmonary process is detected. Dictated by: Dictated on workstation # [id number]
[2021-11-04 13:55] VITALS: BP 144/81
[2021-11-04] MEDS: CATHETER FLUSH 10 ML SYR IV SCH ×2 (14:03→21:01)
[2021-11-04] MEDS ORDERED: CANA100T PO (15:36)
[2021-11-04] MEDS ORDERED: PANT20TA18 PO (15:36)
[2021-11-04] MEDS ORDERED: CALC300T4 PO (15:36)
[2021-11-04] MEDS ORDERED: MTP100TCR PO (15:36)
[2021-11-04] MEDS ORDERED: NITR0.4T39 SL (15:36)
[2021-11-04] MEDS ORDERED: HYDR-3820 PO (15:36)
[2021-11-04] MEDS ORDERED: RT-ALBUINH IH (15:36)
[2021-11-04] MEDS ORDERED: ASPI-1238 PO (15:36)
[2021-11-04] MEDS ORDERED: METF-478 PO (15:38)
[2021-11-04] MEDS ORDERED: MAG30ORA2 PO (15:42)
[2021-11-04 16:00] VITALS: BP 125/74
[2021-11-04] MEDS: PIPERACILLIN/TAZO 4.5 GM/NS 100 ML IV SCH ×4 (16:27→23:12)
--- NOTE | 2021-11-04 16:31 | Consultation-Cardiology ---
HPI-Cardiology Cardiology Consultation: Date of Consultation 11/04/21 Time Seen by a Provider: 15:30 Date of Admission Attending Physician Jolie Miranda MD Admitting Physician [facility] Consulting Physician SANTHOSH BULLARD MA, MD, FACP, FACC, [facility] [place], CCDS HPI: Chief Complaint: Aspiration of reflux, chest pain Mr. Mayorga is a 61 yr old male admitted to [facility] from the ED with c/o chest pain. He reports he woke up from sleep this morning with acid reflux; which he chronically has. He reports he feels he has aspirated. He reports cough. He reports "burning in his esophagus". He states he is having left sided chest discomfort when he coughs. He reports he took a nitro sublingual for the burni ng and pressure in his chest at home which did not provide any relief. He reports he has chronic SOB which has been progressive. He reports he has episodes of left sided chest pain approx twice a month for which he will take a nitro sublingual at times. He reports the discomfort is a pressure, assoc diaphoresis at times with the discomfort. He denies any change in his chronic S OB during chest discomfort episodes. He reports if he does not take a nitro the discomfort will resolve within about 20-30 minutes. The discomfort occurs without r/t activity or emotional stress. He denies any LE swelling. He reports he continues to chew tobacco. No c/o diarrhea. No c/o fever or chills. Review of Systems-Cardiology Review of Systems Constitutional: No chills, No fever, No malaise Eyes: No vision change Ears/Nose/Throat: No epistaxis, No recent hearing loss Respiratory: As described under HPI Cardiovascular: As described under HPI Gastrointestinal: As described under HPI Genitourinary: No dysuria, No hematuria Musculoskeletal: back pain (chronic) Skin: No rash on exposed areas, No ulcerations on exposed areas Psychiatric/Neurological: No anxiety, No depression, No seizure, No focal weakness, No syncope Hematologic: No bleeding abnormalities All Other Systems Reviewed Negative Unless Noted: Yes YCI-Hmyzla-Etsqas Hx Patient Social History Smoking Status: Former Smoker Have you traveled recently?: No Alcohol Use?: No Pt feels they are or have been: No Immunizations Up To Date Tetanus Booster (TDap): Less than 5yrs Past Medical History PMH As described under Assessment. Family Medical History Family Medical History: No reported family h/o CAD or SCD Family History: Cancer Cataract Dementia Family history: Alzheimer's disease Family history: Arthritis Family history: Breast disease Family history: Diabetes mellitus Family history: Glaucoma Family history: Hypertension History of drug abuse No Family History of: Abdominal aortic aneurysm Vimal's disease Alcoholism Aphasia Cancer of colon Chest pain Congenital heart disease Congestive heart failure Cystic fibrosis Dysphagia Family history: Allergy Family history: Asthma Family history: Cardiovascular disease Family history: Coronary thrombosis Family history: Gastrointestinal disease Family history: Osteoporosis Family history: Thyroid disorder Headache Hearing loss Heart disease Hereditary disease History of - anemia History of - disorder History of - respiratory disease Human immunodeficiency virus (HIV) seropositivity Hypercholesterolemia Infertile Kidney disease Malignant neoplasm of lung Myocardial infarction Parkinson's disease Prostate cancer Psychotic disorder Seizure disorder Stroke Tuberculosis Visual impairment Allergies and Home Medications Allergies Coded Allergies: No Known Drug Allergies (Verified , 04/29/16) Patient Home Medication List Home Medication List Reviewed: Yes Albuterol Sulfate (Proair Hfa) 1 Puff Puff, 2 PUFF IH Q6H PRN for SHORTNESS OF BREATH, (Reported) Entered as Reported by: FABBY DAVIS on 11/04/211535 Last Action: Reviewed Aspirin (Aspirin EC) 81 Mg Tablet.dr, 81 MG PO DAILY, (Reported) Entered as Reported by: FABBY DAVIS on 11/04/211535 Last Action: Reviewed Calcium Carbonate (Tums) 300 Mg Tab.chew, 300-600 MG PO Q6H PRN for INDIGESTION, (Reported) Entered as Reported by: FABBY DAVIS on 11/04/211535 Last Action: Reviewed Canagliflozin (Invokana) 100 Mg Tablet, 100 MG PO DAILY, (Reported) Entered as Reported by: FABBY DAVIS on 11/04/211535 Last Action: Reviewed Hydrocodone/Acetaminophen (Hydrocodone-Acetamin 10-325 mg) 1 Each Tablet, 1 EACH PO Q6H PRN for PAIN-MODERATE (5-7), (Reported) Entered as Reported by: FABBY DAVIS on 11/04/211535 Last Action: Reviewed Mag Hydrox/Al Hydrox/Simeth (Mylanta Suspension) 30 Ml Oral.susp, 30 ML PO QID PRN for INDIGESTION, (Reported) Entered as Reported by: FABBY DAVIS on 12/9/21 1542 Last Action: Reviewed Metformin HCl (Metformin HCl ER) 500 Mg Tab.er.24, 1,000 MG PO BID, (Reported) Entered as Reported by: FABBY DAVIS on 11/04/211537 Last Action: Reviewed Metoprolol Succinate (Metoprolol Succinate) 100 Mg Tab.er.24h, 100 MG PO BID, (R eported) Entered as Reported by: FABBY DAVIS on 11/04/211535 Last Action: Reviewed Nitroglycerin (Nitroglycerin) 0.4 Mg Tab.subl, 0.4 MG SL UD PRN for CHEST PAIN, (Reported) Entered as Reported by: FABBY DAVIS on 11/04/211535 Last Action: Reviewed Pantoprazole Sodium (Pantoprazole Sodium) 20 Mg Tablet., 20 MG PO DAILY, (Reported) Entered as Reported by: FABBY DAVIS on 11/04/211535 Last Action: Reviewed Discontinued Medications Aspirin (Aspir 81) 81 Mg Tablet.dr, 81 MG PO DAILY, (Reported) Discontinued Reason: No Longer Taking Entered as Reported by: ASHLY MONTANA on 04/12/16716 Last Action: Discontinued Clopidogrel Bisulfate (Plavix) 75 Mg Tablet, 75 MG PO DAILY Discontinued Reason: No Longer Taking Prescribed by: SANTHOSH BULLARD on 04/12/16942 Last Action: Discontinued Hydrocodone Bit/Acetaminophen (HYDROcodone/APAP 10/325 TABLET) 1 Each Tablet, 1 EACH PO QID PRN for PAIN, (Reported) Discontinued Reason: No Longer Taking Entered as Reported by: ASHLY MONTANA on 04/12/16716 Last Action: Discontinued Metoprolol Succinate (Toprol Xl) 25 Mg Tab.er.24h, 25 MG PO DAILY, (Reported) Discontinued Reason: No Longer Taking Entered as Reported by: ASHLY MONTANA on 04/12/16716 Last Action: Discontinued Pantoprazole Sodium (Protonix) 40 Mg Tablet., 40 MG PO DAILY Discontinued Reason: No Longer Taking Prescribed by: VALENTINA MARS on 05/02/16731 Last Action: Discontinued Simvastatin (Simvastatin) 40 Mg Tablet, 40 MG PO DAILY Discontinued Reason: No Longer Taking Prescribed by: SANTHOSH BULLARD on 04/12/16942 Last Action: Discontinued Physical Exam-Cardiology Physical Exam Vital Signs/I&O 11/04/21 11/04/21 11/04/21 11/04/21 08:36 08:55 11:00 11:52 Temp 36.0 Pulse 123 75 Resp 18 18 B/P (MAP) 121/110 (114) 131/77 Pulse Ox 98 O2 Delivery Room Air Nasal Cannula Nasal Cannula Room Air O2 Flow Rate 2.00 2.00 FiO2 98 11/04/21 11/04/21 11/04/21 11/04/21 11:52 12:00 13:00 13:55 Temp 36.5 36.5 Pulse 75 71 85 71 Resp 18 B/P (MAP) 144/81 (102) Pulse Ox 97 97 O2 Delivery Room Air Capillary Refill : Less Than 3 Seconds Constitutional: AAO x 3, well-developed, well-nourished HEENT: PERRL, hearing is well preserved, oral hygience is good Neck: No carotid bruit; carotid pulses are 2 + bilaterally Respiratory: No accessory muscle use, No respiratory distress; chest expansion is symmetric, chest is bilaterally symmetric, lungs clear to auscultation Cardiovascular: regular rate-rhythm; No JVD; S1 and S2 Gastrointestinal: No tender; soft, round, audible bowel sounds Extremities: no lower extremity edema bilateral Neurologic/Psychiatric: grossly intact (moves all extremities) Skin: No rash on exposed areas, No ulcerations on exposed areas Data Review Labs Laboratory Tests 11/04/21 08:58: White Blood Count 11.4H, Red Blood Count 5.24, Hemoglobin 15.8, Hematocrit 48, Mean Corpuscular Volume 92, Mean Corpuscular Hemoglobin 30, Mean Corpuscular Hemoglobin Concent 33, Red Cell Distribution Width 13.0, Platelet Count 347, Mean Platelet Volume 10.9, Immature Granulocyte % (Auto) 1, Neutrophils (%) ( Auto) 55, Lymphocytes (%) (Auto) 36, Monocytes (%) (Auto) 7, Eosinophils (%) (Auto) 1, Basophils (%) (Auto) 0, Neutrophils # (Auto) 6.2, Lymphocytes # (Auto) 4.1H, Monocytes # (Auto) 0.8, Eosinophils # (Auto) 0.2, Basophils # (Auto) 0.0, Immature Granulocyte # (Auto) 0.1, Prothrombin Time 12.9, INR Comment 0.9, Activated Partial Thromboplast Time 30, Sodium Level 135, Potassium Level 4.1, Chloride Level 101, Carbon Dioxide Level 18L, Anion Gap 16H, Blood Urea Nitrogen 11, Creatinine 1.31H, Estimat Glomerular Filtration Rate 55, BUN/Creatinine Ratio 8, Glucose Level 298H, Calcium Level 9.4, Corrected Calcium 9.1, Magnesium Level 2.7H, Total Bilirubin 0.4, Aspartate Amino Transf (AST/SGOT) 15, Alanine Aminotransferase (ALT/SGPT) 21, Alkaline Phosphatase 115, Myoglobin 30.6, Troponin I < 0.028, B-Type Natriuretic Peptide < 10.0, Total Protein 7.6, Albumin 4.4, Lipase 35 11/04/21 09:05: Blood Gas Puncture Site RT RAD, Blood Gas Patient Temperature 36.0, Arterial Blood pH 7.42, Arterial Blood Partial Pressure CO2 30L, Arterial Blood Partial Pressure O2 91, Arterial Blood HCO3 19L, Arterial Blood Total CO2 20.2L, Arterial Blood Oxygen Saturation 98, Arterial Blood Base Excess -4.6L, Ayan Test YES-POS, Blood Gas Ventilator Setting NO, Blood Gas Inspired Oxygen 2 L 11/04/21 15:11: Troponin I < 0.028 A/P-Cardiology Assessment/Admission Diagnosis Chest pain of undetermined etiology - No evidence of ACS thus far Probable aspiration - managed by pcp CAD -Cardiac cath of April 12, 2016 primarily consisting of 50-60% mid vessel stenosis of the LAD with FFR of 0.87, indicating hemodynamic non-significance. Normal global LV systolic function with an ejection fraction of approx 60%. Mild elevation of LVEDP. No significant MR HTN HLP - statin therapy - managed by PCP DM 2 - managed by PCP SANJEEV Chronic narcotic analgesic use d/t chronic body pains GERD Tobaccoism, - continuing chew tobacco - cessation advised - quit smoking in 1994 Discussion and Recomendations Chest discomfort of undetermined etiology - no evidence of ACS thus far - advise MPI to eval perfusion d/t h/o, c/o and risk factors as noted above Echocardigoram to eval structure and function Management of possible aspiration pneumonia per medical services Management of GERD per medical services Continue home medication regimen including antihypertensives ASA 81mg daily Monitor lab Replace electrolytes as indicated Clinical Quality Measures AMI/AHF: ASA po Prior to arrival: SANTHOSH Andersen MD FACP FAC CCDS Nov 04, 2021 16:31
--- NOTE | 2021-11-04 18:29 | History & Physical-Hospitalist ---
CIARA STOREY 11/04/21 182: History of Present Illness HPI/Chief Complaint CC: Chest pain HPI: Last night patient went out to eat at [employer]. He has a history of GERD and was unsure how food would impact him b/c he ate fast food last week with no issues. This morning he woke up around 6am with a burning feeling in his throat and chest pain. Associated symptoms included diaphoresis and cough. Chest pain is on left side and does not radiate. He took a nitro which provided no relief so he called his daughter to take him to hospital. He has history of GA and did not want to take a risk. Source: patient Exam Limitations: no limitations Date Seen 11/04/21 Attending Physician Karyn Miranda MD [facility] Referring Physician Date of Admission Nov 04, 2021 at 10:29 Home Medications & Allergies Home Medications Reviewed patient Home Medication Reconciliation performed by pharmacy medication reconciliations compressor technician and/or nursing. Patients Allergies have been reviewed. Allergies Allergies Coded Allergies No Known Drug Allergies (Verified04/29/16) Past Kjfoznf-Yclnqp-Dyaqow Hx Patient Social History Marrital Status: single Employed/Student: unemployed Tobacco Use?: Yes Smoking Status: Former Smoker Smokeless type used: Chew Smokeless Tobacco Frequency: Heavy User Use of E-Cig and/or Vaping dev: No Use of E-Cig and/or Vaping Tiburcio: Never a User Substance use?: No Alcohol Use?: No Alcohol Frequency: Once in a while Pt feels they are or have been: No Immunizations Up To Date First/Initial COVID19 Vaccinat: 05/13/21 Second COVID19 Vaccination Tanner: 06/05/21 Hepatitis A: No Hepatitis B: No PED Vaccines UTD: Yes Current Status Advance Directives: Yes Advance Directive Location: Family to bring in copy Communicates: Verbally Primary Language: Irish Preferred Spoken Language: Irish Is interpretation needed?: No Implanted or Applied Medical D: None Past Medical History Surgeries: Abdominal, Cardiac, Orthopedic COPD Coronary Artery Disease, Heart Attack, High Cholesterol, Hypertension Stroke Gastroesophageal Reflux, Hiatal Hernia Arthritis, Gout Diabetes, Non-Insulin dep Loss of Vision: Bilateral Blood Disorders: No Adverse Reaction/Blood Tranf: No Osteoarthritis CAD - NSTEMI 06/2008 GERD PSH: R LE fracture repair hc 06/2008 - non-obstructive CAD hernia repair R knee surgery Family Medical History Cancer Cataract Dementia Family history: Alzheimer's disease Family history: Arthritis Family history: Breast disease Family history: Diabetes mellitus Family history: Glaucoma Family history: Hypertension History of drug abuse No Family History of: Abdominal aortic aneurysm Milford's disease Alcoholism Aphasia Cancer of colon Chest pain Congenital heart disease Congestive heart failure Cystic fibrosis Dysphagia Family history: Allergy Family history: Asthma Family history: Cardiovascular disease Family history: Coronary thrombosis Family history: Gastrointestinal disease Family history: Osteoporosis Family history: Thyroid disorder Headache Hearing loss Heart disease Hereditary disease History of - anemia History of - disorder History of - respiratory disease Human immunodeficiency virus (HIV) seropositivity Hypercholesterolemia Infertile Kidney disease Malignant neoplasm of lung Myocardial infarction Parkinson's disease Prostate cancer Psychotic disorder Seizure disorder Stroke Tuberculosis Visual impairment Cancer, Diabetes, Hypertension Review of Systems Constitutional: diaphoresis EENTM: blurred vision Respiratory: cough, short of breath Cardiovascular: chest pain Gastrointestinal: No constipation; diarrhea, heartburn; No nausea; vomiting Genitourinary: no symptoms reported Musculoskeletal: gout, joint pain Skin: no symptoms reported Physical Exam Physical Exam Vital Signs Vital Signs - First Documented 11/04/21 11/04/21 11/04/21 08:36 08:55 11:00 Temp 36.0 Pulse 123 Resp 18 B/P (MAP) 121/110 (114) Pulse Ox 98 O2 Delivery Room Air O2 Flow Rate 2.00 FiO2 98 Capillary Refill : Less Than 3 Seconds Height, Weight, BMI Height: 5'8.00" Weight: 220lbs. 0.0oz. 99.633791om; 33.69 BMI Method:Stated General Appearance: No Apparent Distress, Obese Neck: Normal Inspection, Supple Respiratory: Chest Non Tender, Lungs Clear, Normal Breath Sounds Cardiovascular: Regular Rate, Rhythm, No Edema, No Murmur Gastrointestinal: Normal Bowel Sounds, Non Tender, Soft Neurologic/Psychiatric: Alert, Oriented x3, Normal Mood/Affect Skin: Normal Color, Warm/Dry Results Results/Procedures Labs Laboratory Tests 11/04/21 08:58 Patient resulted labs reviewed. Imaging: Reviewed Imaging Report Imaging chest x-ray Meds Aspirin, Albuterol/Ipratropium, piperacillin/tazobactam, ondansetron Procedures ECHO Assessment/Plan Admission Diagnosis Aspiration secondary to GERD. Admission Status: Inpatient Order (span 2 midnights) Reason for Inpatient Admission: Rule out cardiac etiology of chest pain. Assessment and Plan Aspiration, GERD, possible pneumonia * Chest x-ray 11/04 unremarkable for lung infiltrate/consolidation * WBC mildly elevated at 11.4 on 11/04 * Plan: pantoprazole and pip/tazo. Daily CBC and CMP. CAD, r/o cardiac chest pain * EKG in sinus rhythm, negative troponins * ECHO ordered, cards following * Plan: Continue aspirin COPD * Plan: Continue Duoneb Diabetes * Plan: hold outpatient meds. Start basal/bolus insulin. Hyperlipdemia * OP simvastatin Hypertension * OP Metoprolol succinate DVT prophylaxis * Lovenox Diagnosis/Problems Diagnosis/Problems (1) Aspiration pneumonia Onset Date: ~ 11/04/2021 Status: Acute Assessment & Plan: Plan: Pip/tazo. Daily CBC and CMP Qualifiers: Aspiration pneumonia type: due to gastric secretions Laterality: unspecified laterality Lung location: unspecified part of lung Qualified Codes: J69.0 - Pneumonitis due to inhalation of food and vomit (2) Hyperlipemia Onset Date: Unknown Status: Chronic Assessment & Plan: Plan: OP simvastatin Qualifiers: Hyperlipidemia type: unspecified Qualified Codes: E78.5 - Hyperlipidemia, unspecified (3) CAD (coronary artery disease) Onset Date: Unknown Status: Chronic Assessment & Plan: Plan: Aspirin. Follow up with ECHO results Qualifiers: Coronary Disease-Associated Artery/Lesion type: squaxin artery [place] vs. transplanted heart: squaxin heart Associated angina: with unspecified form of angina Qualified Codes: I25.119 - Atherosclerotic heart disease of squaxin coronary artery with unspecified angina pectoris (4) COPD (chronic obstructive pulmonary disease) Onset Date: Unknown Status: Chronic Assessment & Plan: Plan: Duoneb Qualifiers: COPD type: unspecified COPD Qualified Codes: J44.9 - Chronic obstructive pulmonary disease, unspecified (5) GERD (gastroesophageal reflux disease) Onset Date: Unknown Status: Chronic Assessment & Plan: Plan: Pantoprazole Qualifiers: Esophagitis presence: esophagitis presence not specified Qualified Codes: K21.9 - Gastro-esophageal reflux disease without esophagitis (6) Hypertension Onset Date: Unknown Status: Chronic Assessment & Plan: Plan: OP metoprolol succinate Qualifiers: Hypertension type: primary hypertension Qualified Codes: I10 - Essential (primary) hypertension (7) Diabetes Onset Date: Unknown Status: Chronic Assessment & Plan: Plan:Stop OP medications. Start basal/bolus insulin. Qualifiers: Diabetes mellitus type: type 2 Diabetes mellitus ferry terminal supervisor insulin use: without longterm use Diabetes mellitus complication status: with hyperglycemia Qualified Codes: E11.65 - Type 2 diabetes mellitus with hyperglycemia Clinical Quality Measures AMI/AHF: ASA po Prior to arrival: KARYN Saucedo MD 11/05/21 1846: History of Present Illness Time Seen by a Provider: 10:45 Past Xeolwxt-Qrklsf-Tfsari Hx Family Medical History Cancer Cataract Dementia Family history: Alzheimer's disease Family history: Arthritis Family history: Breast disease Family history: Diabetes mellitus Family history: Glaucoma Family history: Hypertension History of drug abuse No Family History of: Abdominal aortic aneurysm Milford's disease Alcoholism Aphasia Cancer of colon Chest pain Congenital heart disease Congestive heart failure Cystic fibrosis Dysphagia Family history: Allergy Family history: Asthma Family history: Cardiovascular disease Family history: Coronary thrombosis Family history: Gastrointestinal disease Family history: Osteoporosis Family history: Thyroid disorder Headache Hearing loss Heart disease Hereditary disease History of - anemia History of - disorder History of - respiratory disease Human immunodeficiency virus (HIV) seropositivity Hypercholesterolemia Infertile Kidney disease Malignant neoplasm of lung Myocardial infarction Parkinson's disease Prostate cancer Psychotic disorder Seizure disorder Stroke Tuberculosis Visual impairment Review of Systems Constitutional: No chills, No fever Respiratory: cough, short of breath Cardiovascular: chest pain; No palpitations Gastrointestinal: heartburn, loss of appetite, nausea Genitourinary: no symptoms reported; No dysuria, No frequency, No hematuria Psychiatric/Neurological: No Symptoms Reported Physical Exam Physical Exam General Appearance: No Apparent Distress Neck: Normal Inspection, Supple Respiratory: Chest Non Tender, Normal Breath Sounds Cardiovascular: Regular Rate, Rhythm, No Edema, No Murmur Gastrointestinal: Normal Bowel Sounds, Non Tender, Soft Back: No CVA Tenderness, No Vertebral Tenderness Extremity: Normal Capillary Refill, Normal Range of Motion, No Calf Tenderness, No Pedal Edema Neurologic/Psychiatric: Alert, Oriented x3, Normal Mood/Affect Skin: Normal Color, Warm/Dry Lymphatic: No Adenopathy Assessment/Plan Admission Diagnosis Admission Status: Observation Supervisory-Addendum Brief Verification & Attestation Participated in pt care: history, physical Personally performed: exam, history Care discussed with: Medical Student Procedures: n/a Laboratory Tests Test 11/04/21 20:56 11/05/21 05:51 Range/Units Troponin I < 0.028 <0.028 NG/ML White Blood Count 8.8 4.3-11.0 10^3/uL Red Blood Count 4.72 4.30-5.52 10^6/uL Hemoglobin 14.1 13.3-17.7 g/dL Hematocrit 43 40-54 % Mean Corpuscular Volume 91 80-99 fL Mean Corpuscular Hemoglobin 30 25-34 pg Mean Corpuscular Hemoglobin Concent 33 32-36 g/dL Red Cell Distribution Width 13.2 10.0-14.5 % Platelet Count 268 130-400 10^3/uL Mean Platelet Volume 10.7 9.0-12.2 fL Immature Granulocyte % (Auto) 0 % Neutrophils (%) (Auto) 60 42-75 % Lymphocytes (%) (Auto) 31 12-44 % Monocytes (%) (Auto) 6 0-12 % Eosinophils (%) (Auto) 2 0-10 % Basophils (%) (Auto) 0 0-10 % Neutrophils # (Auto) 5.3 1.8-7.8 10^3/uL Lymphocytes # (Auto) 2.8 1.0-4.0 10^3/uL Monocytes # (Auto) 0.6 0.0-1.0 10^3/uL Eosinophils # (Auto) 0.2 0.0-0.3 10^3/uL Basophils # (Auto) 0.0 0.0-0.1 10^3/uL Immature Granulocyte # (Auto) 0.0 0.0-0.1 10^3/uL Sodium Level 136 135-145 MMOL/L Potassium Level 3.8 3.6-5.0 MMOL/L Chloride Level 105 98-107 MMOL/L Carbon Dioxide Level 19 L 21-32 MMOL/L Anion Gap 12 5-14 MMOL/L Blood Urea Nitrogen 9 7-18 MG/DL Creatinine 1.12 0.60-1.30 MG/DL Estimat Glomerular Filtration Rate 66 BUN/Creatinine Ratio 8 Glucose Level 199 H 70-105 MG/DL Calcium Level 9.2 8.5-10.1 MG/DL Triglycerides Level 340 H <150 MG/DL Cholesterol Level 190 < 200 MG/DL LDL Cholesterol Direct 94 1-129 MG/DL VLDL Cholesterol 68 H 5-40 MG/DL HDL Cholesterol 33 L 40-60 MG/DL CIARA STOREY Nov 04, 2021 18:28 KARYN MIRANDA MD Nov 05, 2021 18:46
[2021-11-04 19:49] VITALS: BP 148/70
[2021-11-04] MEDS ORDERED: ANTACID SUSP 30 ML UDC (MYLANTA) PO PRN (21:00)
[2021-11-04] MEDS ORDERED: LIDOCAINE 2% VISCOUS 15 ML UDC PO PRN (21:00)
[2021-11-04] MEDS: RT-ALBUTEROL/IPRATROPIUM 3 ML (DUONEB) VIAL INH SCH (22:34)
[2021-11-04 23:06] VITALS: BP 146/82
[2021-11-05 03:00] VITALS: BP 163/90
[2021-11-05] MEDS: CATHETER FLUSH 10 ML SYR IV SCH ×2 (05:33→14:27)
[2021-11-05 06:06] LABS: BASOPHILS % (AUTO) 0 % (0-10); EOSINOPHILS # (AUTO) 0.2 10^3/uL (0.0-0.3); EOSINOPHILS % (AUTO) 2 % (0-10); HEMATOCRIT 43 % (40-54); HEMOGLOBIN 14.1 g/dL (13.3-17.7); LYMPHOCYTES # (AUTO) 2.8 10^3/uL (1.0-4.0); LYMPHOCYTES % (AUTO) 31 % (12-44); MEAN CORPUSCULAR HEMOGLOBIN 30 pg (25-34); MEAN CORPUSCULAR HGB CONC 33 g/dL (32-36); MEAN CORPUSCULAR VOLUME 91 fL (80-99); MEAN PLATELET VOLUME 10.7 fL (9.0-12.2); MONOCYTES # (AUTO) 0.6 10^3/uL (0.0-1.0); MONOCYTES % (AUTO) 6 % (0-12); NEUTROPHILS # (AUTO) 5.3 10^3/uL (1.8-7.8); NEUTROPHILS % (AUTO) 60 % (42-75); PLATELET COUNT 268 10^3/uL (130-400); WHITE BLOOD COUNT 8.8 10^3/uL (4.3-11.0)
[2021-11-05 06:19] LABS: POTASSIUM 3.8 MMOL/L (3.6-5.0)
[2021-11-05 06:21] LABS: CALCIUM 9.2 MG/DL (8.5-10.1)
[2021-11-05 06:25] LABS: CREATININE SERUM 1.12 MG/DL (0.60-1.30)
[2021-11-05] MEDS ORDERED: CATHETER FLUSH 10 ML SYR IV PRN (08:00)
[2021-11-05] MEDS ORDERED: ASPIRIN 81 MG CHEW (CHILDREN'S ASA) PO SCH (09:00)
[2021-11-05] MEDS ORDERED: REGADENOSON 0.4 MG/5 ML SYR (LEXISCAN) IV ONE (09:07)
--- NOTE | 2021-11-05 09:44 | Progress Note - Cardiology ---
Cardiology SOAP Progress Note Subjective: Sitting up in the bed States he feels much better than yesterday No c/o CP or SOB No c/o palpitations Objective: I&O/Vital Signs 11/04/21 11/05/21 11/05/21 23:06 01:00 03:00 Temp 36.8 36.6 Pulse 74 68 68 Resp 18 20 B/P (MAP) 146/82 (103) 163/90 (114) Pulse Ox 96 96 O2 Delivery Room Air Room Air 11/05/21 00:00 Intake Total 1580 ml Balance 1580 ml Weight (Pounds): 220 Weight (Ounces): 0.0 Weight (Calculated Kilograms): 99.160352 Constitutional: AAO x 3, well-developed, well-nourished Respiratory: No accessory muscle use, No respiratory distress; chest expansion is symmetric, chest is bilaterally symmetric, lungs clear to auscultation Cardiovascular: regular rate-rhythm; No JVD; S1 and S2 Gastrointestional: No tender; soft, round, audible bowel sounds Extremities: no lower extremity edema bilateral Neurologic/Psychiatric: grossly intact (moves all extremities) Skin: No rash on exposed areas, No ulcerations on exposed areas Results/Procedures: Labs Laboratory Tests 11/04/21 15:11: Troponin I < 0.028 11/04/21 20:56: Troponin I < 0.028 11/05/21 05:51: White Blood Count 8.8, Red Blood Count 4.72, Hemoglobin 14.1, Hematocrit 43, Mean Corpuscular Volume 91, Mean Corpuscular Hemoglobin 30, Mean Corpuscular Hemoglobin Concent 33, Red Cell Distribution Width 13.2, Platelet Count 268, Mean Platelet Volume 10.7, Immature Granulocyte % (Auto) 0, Neutrophils (%) (Auto) 60, Lymphocytes (%) (Auto) 31, Monocytes (%) (Auto) 6, Eosinophils (%) (Auto) 2, Basophils (%) (Auto) 0, Neutrophils # (Auto) 5.3, Lymphocytes # (Auto) 2.8, Monocytes # (Auto) 0.6, Eosinophils # (Auto) 0.2, Basophils # (Auto) 0.0, Immature Granulocyte # (Auto) 0.0, Sodium Level 136, Potassium Level 3.8, Chloride Level 105, Carbon Dioxide Level 19L, Anion Gap 12, Blood Urea Nitrogen 9, Creatinine 1.12, Estimat Glomerular Filtration Rate 66, BUN/Creatinine Ratio 8, Glucose Level 199H, Calcium Level 9.2, Triglycerides Level 340H, Cholesterol Level 190, LDL Cholesterol Direct 94, VLDL Cholesterol 68H, HDL Cholesterol 33L Microbiology 11/04/21 Gram Stain - Final, Resulted 11/04/21 Sputum Culture, Resulted Pending Laboratory Tests 11/04/21 08:58 11/05/21 05:51 A/P: Assessment: Chest pain of undetermined etiology - No evidence of ACS - MPI today - Echocardiogram of 11-04-21 showed LVEF 55-60% Probable aspiration - managed by pcp CAD -Cardiac cath of April 12, 2016 primarily consisting of 50-60% mid vessel stenosis of the LAD with FFR of 0.87, indicating hemodynamic non-significance. Normal global LV systolic function with an ejection fraction of approx 60%. Mild elevation of LVEDP. No significant MR HTN HLP - statin therapy - managed by PCP DM 2 - managed by PCP DJD Chronic narcotic analgesic use d/t chronic body pains GERD Tobaccoism, - continuing chew tobacco - cessation advised - quit smoking in 1994 Plan: Chest discomfort of undetermined etiology - no evidence of ACS- MPI to eval perfusion d/t h/o, c/o and risk factors as noted above - today Management of possible aspiration pneumonia per medical services Management of GERD per medical services Continue home medication regimen including antihypertensives Monitor lab Replace electrolytes as indicated Clinical Quality Measures AMI/AHF: ASA po Prior to arrival: NARINDER Goldman Nov 05, 2021 09:44
[2021-11-05] MEDS ORDERED: meTOprolol SUCCINATE 100 MG (TOPROL XL) TAB PO NR (10:00)
[2021-11-05] MEDS: RT-ALBUTEROL/IPRATROPIUM 3 ML (DUONEB) VIAL INH SCH ×2 (10:34→18:57)
[2021-11-05] MEDS: PIPERACILLIN/TAZO 4.5 GM/NS 100 ML IV SCH ×4 (10:45→17:13)
[2021-11-05 11:00] VITALS: BP 169/76
--- NOTE | 2021-11-05 12:52 | Discharge Summary ---
CIARA STOREY 11/05/21 1252: Diagnosis/Chief Complaint Date of Admission Nov 04, 2021 at 10:29 Date of Discharge Discharge Date: Nov 05, 2021 Admission Diagnosis Aspiration pneumonia secondary to GERD. Primary Care Center/[facility] Discharge Diagnosis GERD (1) Aspiration pneumonia Onset Date: ~ 11/04/2021 Status: Acute Assessment & Plan: Start augmentin PO BID for 5 days (2) GERD (gastroesophageal reflux disease) Onset Date: Unknown Status: Chronic Assessment & Plan: OP Pantoprazole. Follow-up with PCP for severe GERD symptoms. Recommend appointment with general surgery/GI surgery. (3) Hyperlipemia Onset Date: Unknown Status: Chronic Assessment & Plan: OP simvastatin (4) Diabetes Onset Date: Unknown Status: Chronic Assessment & Plan: Restart oral OP medications. Follow-up with PCP for diabetes management. Consider starting insulin or GLP-1 agonist. (5) CAD (coronary artery disease) Onset Date: Unknown Status: Chronic Assessment & Plan: OP Aspirin. (6) COPD (chronic obstructive pulmonary disease) Onset Date: Unknown Status: Chronic Assessment & Plan: OP Duoneb (7) Hypertension Onset Date: Unknown Status: Chronic Assessment & Plan: OP metoprolol succinate Discharge Summary Discharge Physical Exam Allergies: Coded Allergies: No Known Drug Allergies (Verified , 04/29/16) Vitals & I&Os Vital Signs Date Time Temp Pulse Resp B/P (MAP) Pulse Ox O2 Delivery O2 Flow Rate FiO2 11/05/21 11:00 36.6 71 22 169/76 (107) 98 Room Air 11/04/21 11:00 2.00 11/04/21 08:55 98 General Appearance: No Apparent Distress Respiratory: Lungs Clear, Normal Breath Sounds, No Respiratory Distress Cardiovascular: Regular Rate, Rhythm Gastrointestinal: Non Tender, Soft Extremity: No Pedal Edema Skin: Normal Color, Warm/Dry Neurologic/Psychiatric: Normal Mood/Affect Hospital Course Was the Problem List Reviewed?: Yes Mr. Benji Mayorga is a 61 year old gentleman with a PMH of GERD, T2DM, CAD, HLD, HTN, who presented to the hospital with chest pain and cough. Yesterday morning, patient woke up with burning sensation in his chest and throat. It was unremitting so he called daughter to take him to the ED. Cardiology workup was negative for ischemic changes. Chest x-ray did not show consolidations or opacities. White blood cell count was slightly elevated. Patient received IV antibiotics. During the evening of 11/04, patient began having more severe GERD symptoms and GI cocktail was given. Outpatient diabetes medications were held during hospital stay. Outpatient medications for CAD, COPD, and HTN were continued. Patient has severe daily GERD symptoms. Most recent EGD was 2 years ago, which was remarkable for LES dysfunction. Due to severity and frequency of symptoms, it was recommended that patient follow-up with his PCP and schedule appointment with surgeon. All questions were answered. Patient was understanding of medical care received and steps moving forward. Mr. Mayorga was a very pleasant patient, and it was great to participate in his care. Labs (last 24 hrs) Laboratory Tests 11/04/21 15:11: Troponin I < 0.028 11/04/21 20:56: Troponin I < 0.028 11/05/21 05:51: White Blood Count 8.8, Red Blood Count 4.72, Hemoglobin 14.1, Hematocrit 43, Mean Corpuscular Volume 91, Mean Corpuscular Hemoglobin 30, Mean Corpuscular Hemoglobin Concent 33, Red Cell Distribution Width 13.2, Platelet Count 268, Mean Platelet Volume 10.7, Immature Granulocyte % (Auto) 0, Neutrophils (%) (Auto) 60, Lymphocytes (%) (Auto) 31, Monocytes (%) (Auto) 6, Eosinophils (%) ( Auto) 2, Basophils (%) (Auto) 0, Neutrophils # (Auto) 5.3, Lymphocytes # (Auto) 2.8, Monocytes # (Auto) 0.6, Eosinophils # (Auto) 0.2, Basophils # (Auto) 0.0, Immature Granulocyte # (Auto) 0.0, Sodium Level 136, Potassium Level 3.8, Chloride Level 105, Carbon Dioxide Level 19L, Anion Gap 12, Blood Urea Nitrogen 9, Creatinine 1.12, Estimat Glomerular Filtration Rate 66, BUN/Creatinine Ratio 8, Glucose Level 199H, Calcium Level 9.2, Triglycerides Level 340H, Cholesterol Level 190, LDL Cholesterol Direct 94, VLDL Cholesterol 68H, HDL Cholesterol 33L Microbiology 11/04/21 Gram Stain - Final, Resulted 11/04/21 Sputum Culture - Preliminary, Resulted Culture In Progress Patient resulted labs reviewed. Other pending tests Cardiac Stress Test Radiology Reviewed Chest x-ray Imaging: Reviewed Imaging Films, Reviewed Imaging Report Discussion & Recommendations Discharge Planning: <30 minutes discharge planning Patient is to restart outpatient meds and start oral antibiotcs. Follow-up with PCP. Recommend appointment with surgeon to address severe GERD symptoms. Discharge Home Medications: Active Scripts Active Reported Mylanta Suspension (Al Hydrox/Mg Hydrox/Simethicone) 30 Ml Oral.susp 30 Ml PO QID PRN Metformin HCl ER (Metformin HCl) 500 Mg Tab.er.24 1,000 Mg PO BID TAKES 2 (500MG) TABS Tums (Calcium Carbonate) 300 Mg Tab.chew 300-600 Mg PO Q6H PRN Invokana (Canagliflozin) 100 Mg Tablet 100 Mg PO DAILY Hydrocodone-Acetamin 10-325 mg (Hydrocodone/Acetaminophen) 1 Each Tablet 1 Each PO Q6H PRN Metoprolol Succinate 100 Mg Tab.er.24h 100 Mg PO BID Nitroglycerin 0.4 Mg Tab.subl 0.4 Mg SL UD PRN Pantoprazole Sodium 20 Mg Tablet.dr 20 Mg PO DAILY Proair Hfa (Albuterol Sulfate) 1 Puff Puff 2 Puff IH Q6H PRN Aspirin EC (Aspirin) 81 Mg Tablet.dr 81 Mg PO DAILY Condition at discharge stable Instructions to patient/family Please see electronic discharge instructions given to patient. Clinical Quality Measures AMI/AHF: ASA po Prior to arrival: JOLIE Saucedo MD 11/05/21 5345: Discharge Summary Discharge Physical Exam Allergies: Coded Allergies: No Known Drug Allergies (Verified , 04/29/16) Supervisory-Addendum Brief Verification & Attestation Participated in pt care: history, physical Personally performed: exam, history Care discussed with: Medical Student Procedures: n/a Verification and Attestation of Medical Student E/M Service A medical student performed and documented this service in my presence. I reviewed and verified all information documented by the medical student and made modifications to such information, when appropriate. I personally performed the physical exam and medical decision making. Jolie Berrios, Nov 05, 2021,14:47 Waiting for cardiac clearance for patient to d/c home Problem Qualifiers (1) Aspiration pneumonia: Aspiration pneumonia type: due to gastric secretions Laterality: unspecified laterality Lung location: unspecified part of lung Qualified Codes: J69.0 - Pneumonitis due to inhalation of food and vomit (2) GERD (gastroesophageal reflux disease): Esophagitis presence: esophagitis presence not specified Qualified Codes: K21.9 - Gastro-esophageal reflux disease without esophagitis (3) Hyperlipemia: Hyperlipidemia type: unspecified Qualified Codes: E78.5 - Hyperlipidemia, unspecified (4) Diabetes: Diabetes mellitus type: type 2 Diabetes mellitus senior living insulin use: without senior living use Diabetes mellitus complication status: with hyperglycemia Qualified Codes: E11.65 - Type 2 diabetes mellitus with hyperglycemia (5) CAD (coronary artery disease): Coronary Disease-Associated Artery/Lesion type: [place] artery [place] vs. transplanted heart: [place] heart Associated angina: with unspecified form of angina Qualified Codes: I25.119 - Atherosclerotic heart disease of [place] coronary artery with unspecified angina pectoris (6) COPD (chronic obstructive pulmonary disease): COPD type: unspecified COPD Qualified Codes: J44.9 - Chronic obstructive pulmonary disease, unspecified (7) Hypertension: Hypertension type: primary hypertension Qualified Codes: I10 - Essential (primary) hypertension CIARA STOREY Nov 05, 2021 12:52 JOLIE BERRIOS MD Nov 05, 2021 18:48
--- NOTE | 2021-11-05 15:39 | Progress Note - Cardiology ---
Cardiology SOAP Progress Note Subjective: No cp or palp or syncope or shortness of breath Mild gen malaise and weakness No n/v/d Objective: I&O/Vital Signs 11/05/21 11/05/21 11/05/21 11/05/21 07:00 10:20 10:38 11:00 Temp 36.6 Pulse 64 71 Resp 22 B/P (MAP) 169/76 (107) Pulse Ox 99 98 O2 Delivery Room Air Room Air Room Air 11/05/21 13:00 Pulse 66 11/05/21 00:00 Intake Total 1580 ml Balance 1580 ml Weight (Pounds): 220 Weight (Ounces): 0.0 Weight (Calculated Kilograms): 99.955707 Constitutional: AAO x 3, well-developed, well-nourished Respiratory: No accessory muscle use, No respiratory distress; chest expansion is symmetric, chest is bilaterally symmetric, lungs clear to auscultation Cardiovascular: regular rate-rhythm; No JVD; S1 and S2 Gastrointestional: No tender; soft, round, audible bowel sounds Extremities: no lower extremity edema bilateral Neurologic/Psychiatric: grossly intact (moves all extremities) Skin: No rash on exposed areas, No ulcerations on exposed areas Results/Procedures: Labs Laboratory Tests 11/04/21 20:56: Troponin I < 0.028 11/05/21 05:51: White Blood Count 8.8, Red Blood Count 4.72, Hemoglobin 14.1, Hematocrit 43, Mean Corpuscular Volume 91, Mean Corpuscular Hemoglobin 30, Mean Corpuscular Hemoglobin Concent 33, Red Cell Distribution Width 13.2, Platelet Count 268, Mean Platelet Volume 10.7, Immature Granulocyte % (Auto) 0, Neutrophils (%) (Auto) 60, Lymphocytes (%) (Auto) 31, Monocytes (%) (Auto) 6, Eosinophils (%) (Auto) 2, Basophils (%) (Auto) 0, Neutrophils # (Auto) 5.3, Lymphocytes # (Auto) 2.8, Monocytes # (Auto) 0.6, Eosinophils # (Auto) 0.2, Basophils # (Auto) 0.0, Immature Granulocyte # (Auto) 0.0, Sodium Level 136, Potassium Level 3.8, Chloride Level 105, Carbon Dioxide Level 19L, Anion Gap 12, Blood Urea Nitrogen 9, Creatinine 1.12, Estimat Glomerular Filtration Rate 66, BUN/Creatinine Ratio 8, Glucose Level 199H, Calcium Level 9.2, Triglycerides Level 340H, Cholesterol Level 190, LDL Cholesterol Direct 94, VLDL Cholesterol 68H, HDL Cholesterol 33L Microbiology 11/04/21 Gram Stain - Final, Resulted 11/04/21 Sputum Culture - Preliminary, Resulted Culture In Progress 11/04/21 Blood Culture - Preliminary, Resulted No growth Laboratory Tests 11/04/21 08:58 11/05/21 05:51 A/P: Assessment: Chest pain of undetermined etiology, noncardiac - No evidence of ACS - Echocardiogram of 11-04-21 showed LVEF 55-60% - MPI of 11-05-21 did not ischemia or infarction, LVEF normal Probable aspiration - managed by pcp CAD -Cardiac cath of April 12, 2016 primarily consisting of 50-60% mid vessel stenosis of the LAD with FFR of 0.87, indicating hemodynamic non-significance. Normal global LV systolic function with an ejection fraction of approx 60%. Mild elevation of LVEDP. No significant MR HTN HLP - statin therapy - managed by PCP DM 2 - managed by PCP DJD Chronic narcotic analgesic use d/t chronic body pains GERD Tobaccoism, - continuing chew tobacco - cessation advised - quit smoking in 1994 Plan: * I discussed his CV issues and his CV w/u during this hospitalization with him and his family and answered questions * Ok to d/c from cardiac standpoint * Outpt f/u advised Clinical Quality Measures AMI/AHF: ASA po Prior to arrival: SANTHOSH Andersen MD FACP FAC CCDS Nov 05, 2021 15:39
[2021-11-05 16:25] VITALS: BP 160/88
--- NOTE | 2021-11-05 17:23 | STRESS TEST ---
DATE OF SERVICE: 11/05/2021 RESTING AND POST REGADENOSON TECHNETIUM-99M TETROFOSMIN SPECT CT IMAGING ORDERING PHYSICIAN: Chaya Whitehead APRN. PRIMARY PHYSICIAN: Dr. Miranda. OTHER PHYSICIAN: [facility]. CLINICAL DIAGNOSIS: Chest discomfort. Baseline images were carried out after injection of 10.3 mCi of technetium-99m Tetrofosmin. This was followed by 0.4 mg of Regadenoson and 29.3 mCi of technetium-99m Tetrofosmin for stress imaging. The electrocardiogram showed sinus rhythm at baseline. It did not change significantly with the Regadenoson infusion. Review of images at rest and following stress does not indicate any significant perfusion defects consistent with significant myocardial ischemia or infarction. Gated images show normal global left ventricular systolic function with normal regional wall motion. Left ventricular ejection fraction is calculated to be 54%. Left ventricular end-diastolic volume is 61 mL. TID is absent (1.09). CONCLUSIONS: 1. No evidence of any significant myocardial ischemia or infarction on this study. 2. Normal regional wall motion. 3. Normal global left ventricular systolic function with a calculated ejection fraction of 54%. CC: Jolie Miranda - requested, unable to deliver. Job ID: [id number] DocumentID: [id number] Dictated Date: 11/05/2021 15:05:55 Sales Driver Date: 11/05/2021 17:22:17 Dictated By: SANTHOSH BULLARD MD, MA, FACP, FACC,
[2021-11-05] MEDS ORDERED: meTOprolol SUCCINATE 100 MG (TOPROL XL) TAB PO SCH (21:00)
[2021-11-05 21:28] VITALS: BP 162/81
== END 2021-11-05 21:38 | disposition home or self-care (01) ==
LOC: EDUNIT# 08:35 → ER 08:36 → 4TH 10:29
PROVIDERS: ADMIT Family Medicine; ATTEND Internal Medicine
DX: R07.89 Other chest pain (principal); J69.0 Pneumonitis due to inhalation of food and vomit; K21.9 Gastro-esophageal reflux disease without esophagitis; E78.5 Hyperlipidemia, unspecified; E11.9 Type 2 diabetes mellitus without complications; I25.10 Atherosclerotic heart disease of native coronary artery without angina pectoris; J44.9 Chronic obstructive pulmonary disease, unspecified; I10 Essential (primary) hypertension; R00.0 Tachycardia, unspecified; M19.90 Unspecified osteoarthritis, unspecified site; E78.00 Pure hypercholesterolemia, unspecified; Z79.899 Other long term (current) drug therapy; Z79.84 Long term (current) use of oral hypoglycemic drugs; Z79.891 Long term (current) use of opiate analgesic; Z79.82 Long term (current) use of aspirin; Z87.891 Personal history of nicotine dependence
CPT/HCPCS: 71045; 71046; 78452; 80048; 80053; 80061; 82805; 83690; 83735; 83874; 83880; 84484; 85025 ×2; 85610; 85730; 87040; 87070; 87205; 93005; 93017; 93041; 93306; 94640 ×2; 94760; 96361; 96365; 96375; 99284; A9502; G0378; 36415

== ENCOUNTER 2022-01-28 05:13 | Emergency (ER) | payer MEDICARE, MEDICAID ==
[~2022-01-28 05:13] MED LIST changes: +ASPI-1238 PO; +CALC300T4 PO; +CANA100T PO; +HYDR-3820 PO; +MAG30ORA2 PO; +METF-478 PO; +MTP100TCR PO; +NITR0.4T39 SL; +PANT20TA18 PO; +RT-ALBUINH IH
[2022-01-28] MEDS ORDERED: ONDANSETRON 4 MG/2 ML (SDV) Z0FRAN IVP ONE (05:30)
[2022-01-28] MEDS ORDERED: SUCRALFATE 1 GM (CARAFATE) TAB PO ONE (05:30)
[2022-01-28] MEDS ORDERED: ASPIRIN 81 MG CHEW (CHILDREN'S ASA) PO ONE (05:30)
[2022-01-28] MEDS ORDERED: LIDOCAINE 2% VISCOUS 15 ML UDC PO ONE (05:30)
[2022-01-28] MEDS ORDERED: ANTACID SUSP 30 ML UDC (MYLANTA) PO ONE ×2 (05:30→06:45)
[2022-01-28] MEDS ORDERED: PANTOPRAZOLE 40 MG (PROTONIX) VIAL IV ONE ×2 (05:30→06:45)
[2022-01-28 05:31] LABS: BASOPHILS # (AUTO) 0.1 10^3/uL (0.0-0.1); BASOPHILS % (AUTO) 0 % (0-10); EOSINOPHILS # (AUTO) 0.3 10^3/uL (0.0-0.3); EOSINOPHILS % (AUTO) 2 % (0-10); HEMATOCRIT 46 % (40-54); LYMPHOCYTES # (AUTO) 3.7 10^3/uL (1.0-4.0); LYMPHOCYTES % (AUTO) 27 % (12-44); MEAN CORPUSCULAR HEMOGLOBIN 29 pg (25-34); MEAN CORPUSCULAR HGB CONC 33 g/dL (32-36); MEAN CORPUSCULAR VOLUME 90 fL (80-99); MEAN PLATELET VOLUME 10.4 fL (9.0-12.2); MONOCYTES # (AUTO) 0.9 10^3/uL (0.0-1.0); MONOCYTES % (AUTO) 6 % (0-12); NEUTROPHILS # (AUTO) 8.8 10^3/uL (1.8-7.8); NEUTROPHILS % (AUTO) 64 % (42-75); PLATELET COUNT 364 10^3/uL (130-400); WHITE BLOOD COUNT 13.7 10^3/uL (4.3-11.0)
[2022-01-28 05:39] LABS: CHLORIDE 104 MMOL/L (98-107); POTASSIUM 4.3 MMOL/L (3.6-5.0); SODIUM 136 MMOL/L (135-145)
[2022-01-28 05:40] LABS: CALCIUM 10.3 MG/DL (8.5-10.1)
[2022-01-28 05:41] LABS: GLUCOSE 154 MG/DL (70-105)
[2022-01-28 05:42] LABS: CARBON DIOXIDE 17 MMOL/L (21-32); PROTHROMBIN TIME PATIENT 13.2 SEC (12.2-14.7)
[2022-01-28 05:45] LABS: BUN/CREATININE RATIO 13; CREATININE SERUM 1.22 MG/DL (0.60-1.30); GFR ESTIMATED 67
--- NOTE | 2022-01-28 05:45 | ED Chest Pain ---
General Chief Complaint: Chest Pain Stated Complaint: CHEST PAIN Nursing Triage Note: TO ED VIA POV AND AMBULATORY TO ROOM 5 WITH C/O "ACID REFLUX ATTACK" STARTED AT 0400 AND CP STARTED AT 0430. RATES CP 10 ON 0-10 SCALE. STATES, "FEELS LIKE MY CHEST IS ON FIRE". STATES TOOK 1 NITRO DOUGHNUT ICER MACHINE WITHOUT RELIEF. TAKES ASA DAILY, BUT NONE THIS AM YET. Source: patient Exam Limitations: no limitations (LAXMI VOGEL MD) History of Present Illness Date Seen by Provider: Jan 28, 2022 Time Seen by Provider: 05:20 Initial Comments Patient is a 61-year-old male who presents to the emergency department with a chief complaint of epigastric and midsternal chest discomfort onset about 4 AM just as he was getting ready to go to sleep. Patient states that it is a "acid reflux attack". He has had multiple previous episodes that are similar. He states that he has had a prior heart attack caused by the symptoms in the past. He tells me that he has had angioplasty, he does not have stents. He tells me he is not currently on Plavix but takes aspirin daily. He has not had any this morning. He states that he has a burning or fire sensation in his mid chest. He is currently nauseous. The pain does not radiate. He is states clammy and sweaty. He did have a nitroglycerin prior to arrival without any relief of symptoms. He is taken "a lot of times". He states he is scheduled to see a surgeon at [facility] in [place] related to his chronic acid reflux. He developed a cough this morning related to the acid reflux he states. He did have a stress test in 20 resulted in a heart cath.20 which did not result in a heart cath. All other review of systems reviewed and negative except as stated Timing/Duration: 1 hour Severity/Quality: moderate, burning Location: central Radiation: no radiation Activities at Onset: sleep ASA po DOUGHNUT ICER MACHINE: No NTG SL DOUGHNUT ICER MACHINE: Yes Associated Symptoms: abdominal pain (epigastric), diaphoresis, nausea/vomiting (LAXMI VOGEL MD) Allergies and Home Medications Allergies Coded Allergies: No Known Drug Allergies (Verified , 04/29/16) Patient Home Medication List Home Medication List Reviewed: Yes (LAXMI VOGEL MD) Albuterol Sulfate (Proair Hfa) 1 Puff Puff, 2 PUFF IH Q6H PRN for SHORTNESS OF BREATH, (Reported) Entered as Reported by: FABBY DAVIS on 11/04/21 153 Aspirin (Aspirin EC) 81 Mg Tablet.dr, 81 MG PO DAILY, (Reported) Entered as Reported by: FABBY DAVIS on 11/04/21 153 Calcium Carbonate (Tums) 300 Mg Tab.chew, 300-600 MG PO Q6H PRN for INDIGESTION, (Reported) Entered as Reported by: FABBY DAVIS on 11/04/21 153 Canagliflozin (Invokana) 100 Mg Tablet, 100 MG PO DAILY, (Reported) Entered as Reported by: FABBY DAVIS on 11/04/211535 Hydrocodone/Acetaminophen (Hydrocodone-Acetamin 10-325 mg) 1 Each Tablet, 1 EACH PO Q6H PRN for PAIN-MODERATE (5-7), (Reported) Entered as Reported by: FABBY DAVIS on 11/04/211535 Mag Hydrox/Al Hydrox/Simeth (Mylanta Suspension) 30 Ml Oral.susp, 30 ML PO QID PRN for INDIGESTION, (Reported) Entered as Reported by: FABBY DAVIS on 11/04/21 154 Metformin HCl (Metformin HCl ER) 500 Mg Tab.er.24, 1,000 MG PO BID, (Reported) Entered as Reported by: FABBY DAVIS on 11/04/21 153 Metoprolol Succinate (Metoprolol Succinate) 100 Mg Tab.er.24h, 100 MG PO BID, (Reported) Entered as Reported by: FABBY DVAIS on 11/04/21 153 Nitroglycerin (Nitroglycerin) 0.4 Mg Tab.subl, 0.4 MG SL UD PRN for CHEST PAIN, (Reported) Entered as Reported by: FABBY DAVIS on 11/04/211535 Pantoprazole Sodium (Pantoprazole Sodium) 20 Mg Tablet.dr, 20 MG PO DAILY, (Reported) Entered as Reported by: FABBY DAVIS on 11/04/211535 Review of Systems Review of Systems Constitutional: see HPI EENTM: No Symptoms Reported Respiratory: Shortness of Air Cardiovascular: Chest Pain Gastrointestinal: Abdominal Pain (epigastric), Nausea, Vomiting (x1) Genitourinary: No Symptoms Reported Musculoskeletal: no symptoms reported Skin: other (sweaty) (LAXMI VOGEL MD) All Other Systems Reviewed Negative Unless Noted: Yes (LAXMI VOGEL MD) Past Ipwwvlf-Tiphub-Qbajbr Hx Patient Social History Tobacco Use?: Yes Smoking Status: Former Smoker Alcohol Frequency: Rarely (LAXMI VOGEL MD) Immunizations Up To Date Tetanus Booster (TDap): Less than 5yrs PED Vaccines UTD: Yes Influenza Vaccine Up-to-Date: No; Not Current First/Initial COVID19 Vaccinat: 05/13/21 Second COVID19 Vaccination Tanner: 06/05/21 (LAXMI VOGEL MD) Past Medical History Surgery/Hospitalization HX: Hypertension, Diabetes, High cholesterol, EGD 2018, Scar tissue in throat, GERD, former smoker, Stents, Heart Cath 2015, COPD, Arthritis, Gout, 1985 Right leg broke, 1981 broke back, Surgeries: Yes (hernia repair, Broken leg repair, R KNEE repair, HEART CATH) Abdominal, Cardiac, Orthopedic Respiratory: Yes (SOB AT END OF DAY) COPD Cardiac: Yes (HEART CATH-04/13, NO STENTS BUT CLEANED OUT ARTERY) Coronary Artery Disease, Heart Attack, High Cholesterol, Hypertension Neurological: No Stroke Reproductive Disorders: No Gastrointestinal: Yes Gastroesophageal Reflux, Hiatal Hernia Musculoskeletal: Yes (ARTHRITIS) Arthritis, Gout Endocrine: No Diabetes, Non-Insulin dep Loss of Vision: Bilateral Cancer: No Psychosocial: No Integumentary: No Blood Disorders: No Adverse Reaction/Blood Tranf: No (LAXMI VOGEL MD) Family Medical History Cancer Cataract Dementia Family history: Alzheimer's disease Family history: Arthritis Family history: Breast disease Family history: Diabetes mellitus Family history: Glaucoma Family history: Hypertension History of drug abuse No Family History of: Abdominal aortic aneurysm Tolland's disease Alcoholism Aphasia Cancer of colon Chest pain Congenital heart disease Congestive heart failure Cystic fibrosis Dysphagia Family history: Allergy Family history: Asthma Family history: Cardiovascular disease Family history: Coronary thrombosis Family history: Gastrointestinal disease Family history: Osteoporosis Family history: Thyroid disorder Headache Hearing loss Heart disease Hereditary disease History of - anemia History of - disorder History of - respiratory disease Human immunodeficiency virus (HIV) seropositivity Hypercholesterolemia Infertile Kidney disease Malignant neoplasm of lung Myocardial infarction Parkinson's disease Prostate cancer Psychotic disorder Seizure disorder Stroke Tuberculosis Visual impairment Cancer, Diabetes, Hypertension (LAXMI VOGEL MD) Physical Exam Vital Signs Vital Signs - First Documented 01/28/22 05:17 Pulse 104 Resp 22 B/P (MAP) 120/88 (99) Pulse Ox 97 O2 Delivery Room Air (RAMSES SMALL) Vital Signs Capillary Refill : Less Than 3 Seconds (LAXMI VOGEL MD) Height, Weight, BMI Height: 5'8.00" Weight: 220lbs. 0.0oz. 99.742947io; 33.80 BMI Method:Stated General Appearance: No Apparent Distress, WD/WN HEENT: PERRL/EOMI, Moist Mucous Membranes Neck: Normal Inspection Respiratory: Lungs Clear, Normal Breath Sounds, No Accessory Muscle Use, No Res piratory Distress Cardiovascular: Regular Rate, Rhythm Gastrointestinal: Soft, Tenderness (epigastric tenderness to palpation) Extremity: Normal Capillary Refill, Normal Inspection, Normal Range of Motion, Non Tender, No Calf Tenderness, No Pedal Edema Neurologic/Psychiatric: Alert, Oriented x3, No Motor/Sensory Deficits, Normal Mood/Affect, barrel drainer II-XII Norm as Tested Skin: Normal Color, Warm/Dry (LAXMI VOGEL MD) Progress/Results/Core Measures Results/Orders Lab Results Laboratory Tests Test 01/28/22 05:20 01/28/22 08:07 Range/Units White Blood Count 13.7 H 4.3-11.0 10^3/uL Red Blood Count 5.10 4.30-5.52 10^6/uL Hemoglobin 15.0 13.3-17.7 g/dL Hematocrit 46 40-54 % Mean Corpuscular Volume 90 80-99 fL Mean Corpuscular Hemoglobin 29 25-34 pg Mean Corpuscular Hemoglobin Concent 33 32-36 g/dL Red Cell Distribution Width 13.1 10.0-14.5 % Platelet Count 364 130-400 10^3/uL Mean Platelet Volume 10.4 9.0-12.2 fL Immature Granulocyte % (Auto) 1 % Neutrophils (%) (Auto) 64 42-75 % Lymphocytes (%) (Auto) 27 12-44 % Monocytes (%) (Auto) 6 0-12 % Eosinophils (%) (Auto) 2 0-10 % Basophils (%) (Auto) 0 0-10 % Neutrophils # (Auto) 8.8 H 1.8-7.8 10^3/uL Lymphocytes # (Auto) 3.7 1.0-4.0 10^3/uL Monocytes # (Auto) 0.9 0.0-1.0 10^3/uL Eosinophils # (Auto) 0.3 0.0-0.3 10^3/uL Basophils # (Auto) 0.1 0.0-0.1 10^3/uL Immature Granulocyte # (Auto) 0.1 0.0-0.1 10^3/uL Prothrombin Time 13.2 12.2-14.7 SEC INR Comment 1.0 0.8-1.4 Activated Partial Thromboplast Time 34 24-35 SEC Sodium Level 136 135-145 MMOL/L Potassium Level 4.3 3.6-5.0 MMOL/L Chloride Level 104 98-107 MMOL/L Carbon Dioxide Level 17 L 21-32 MMOL/L Anion Gap 15 H 5-14 MMOL/L Blood Urea Nitrogen 16 7-18 MG/DL Creatinine 1.22 0.60-1.30 MG/DL Estimat Glomerular Filtration Rate 67 BUN/Creatinine Ratio 13 Glucose Level 154 H 70-105 MG/DL Calcium Level 10.3 H 8.5-10.1 MG/DL Troponin I < 0.028 < 0.028 <0.028 NG/ML (RAMSES SMALL) My Orders Orders - RAMSES SMALL Troponin I Marcelina (01/28/22 08:00) Famotidine Tablet (Pepcid Tablet) (01/28/22 07:00) (RAMSES SMALL) Medications Given in ED Current Medications Medications Dose Ordered Sig/Natanael Route Start Time Stop Time Status Last Admin Dose Admin Al Hydrox/Mg Hydrox/Simethicone 30 ml ONCE ONCE PO 01/28/22 05:30 01/28/22 05:31 DC 01/28/22 05:38 30 ML Aspirin 324 mg ONCE ONCE PO 01/28/22 05:30 01/28/22 05:31 DC 01/28/22 05:37 324 MG Famotidine 20 mg ONCE ONCE PO 01/28/22 07:00 01/28/22 07:01 DC 01/28/22 07:00 20 MG Lidocaine HCl 5 ml ONCE ONCE PO 01/28/22 05:30 01/28/22 05:31 DC 01/28/22 05:38 5 ML Ondansetron HCl 4 mg ONCE ONCE IVP 01/28/22 05:30 01/28/22 05:31 DC 01/28/22 05:38 4 MG Pantoprazole 40 mg ONCE ONCE IV 01/28/22 05:30 01/28/22 06:48 DC 01/28/22 05:38 40 MG Sucralfate 1 gm ONCE ONCE PO 01/28/22 05:30 01/28/22 05:31 DC 01/28/22 05:37 1 GM (RAMSES SMALL) Vital Signs/I&O 01/28/22 05:17 Pulse 104 Resp 22 B/P (MAP) 120/88 (99) Pulse Ox 97 O2 Delivery Room Air (RAMSES SMALL) Blood Pressure Mean: 99 Progress Progress Note : Time: 05:51 Progress Note feeling better after meds (LAXMI VOGEL MD) Initial ECG Impression Date: Jan 28, 2022 Initial ECG Impression Time: 05:16 Initial ECG Rate: 103 Initial ECG Rhythm: S.Tach Initial ECG Intervals: Normal Initial ECG Impression: Normal (LAXMI VOGEL MD) Diagnostic Imaging Diagonstic Imaging: Xray Plain Films/CT/US/NM/MRI: chest Comments NAME: PARMJIT BEAUCHAMP MED REC#: [id number] PT STATUS: REG ER : 1960 PHYSICIAN: LAXMI VOGEL MD ADMIT DATE: 01/28/22/ER Draft Date of Exam:01/28/22 CHEST 1 VIEW, AP/PA ONLY INDICATION: Chest pain COMPARISON: 11/04/2021 TECHNIQUE: Single frontal radiograph of the chest dated 01/28/2022. FINDINGS: The cardiac silhouette is within normal limits in size. No significant pulmonary vascular congestion. Significantly low lung volumes, though the lungs are clear of focal pulmonary opacity. No pleural effusion. No pneumothorax. Mild scattered osseous degenerative changes without acute osseous abnormality. IMPRESSION: Low lung volumes without superimposed acute cardiopulmonary abnormality. Dictated on workstation # [id number] Dict: 01/28/2221 Trans: 01/28/22 0625 NOEMI [id number] Interpreted by: YON HERNANDEZ MD Electronically signed by: Reviewed: Reviewed by Me (RAMSES SMALL) Departure Impression Primary Impression: Chest pain Qualified Codes: R07.9 - Chest pain, unspecified Additional Impression: GERD (gastroesophageal reflux disease) Qualified Codes: K21.9 - Gastro-esophageal reflux disease without esophagitis Disposition: HOME, SELF-CARE Condition: Stable Departure-Patient Inst. Decision time for Depature: 09:32 (RAMSES SMALL) Referrals: [facility] [place] (PCP/Family) Primary Care Physician Patient Instructions: Acid Reflux and Gastroesophageal Reflux Disease in Adults Add. Discharge Instructions: Continue taking your acid reflux medicines and follow-up with Dr. Velasco. All discharge instructions reviewed with patient and/or family. Voiced understanding. LAXMI VOGEL MD Jan 28, 2022 05:45 RAMSES SMALL Jan 28, 2022 06:31
--- NOTE | 2022-01-28 06:25 | Diagnostic Imaging Report ---
INDICATION: Chest pain COMPARISON: 11/04/2021 TECHNIQUE: Single frontal radiograph of the chest dated 01/28/2022. FINDINGS: The cardiac silhouette is within normal limits in size. No significant pulmonary vascular congestion. Significantly low lung volumes, though the lungs are clear of focal pulmonary opacity. No pleural effusion. No pneumothorax. Mild scattered osseous degenerative changes without acute osseous abnormality. IMPRESSION: Low lung volumes without superimposed acute cardiopulmonary abnormality. Dictated by: Dictated on workstation # [id number]
[2022-01-28] MEDS ORDERED: FAMOTIDINE 20 MG (PEPCID) TABLET PO ONE (07:00)
[2022-01-28 09:50] VITALS: BP 112/78
== END 2022-01-28 09:50 | disposition home or self-care (01) ==
LOC: EDUNIT# 05:13 → ER 05:15
DX: R07.9 Chest pain, unspecified (principal); K21.9 Gastro-esophageal reflux disease without esophagitis; Z87.891 Personal history of nicotine dependence
CPT/HCPCS: 36415; 71045; 80048; 84484; 85025; 85610; 85730; 93005

== ENCOUNTER → 2022-02-08 | Outpatient (CLI) | payer MEDICARE, MEDICAID ==
--- NOTE | 2022-02-08 12:47 | Diagnostic Imaging Report ---
Exam: Nuclear medicine gastric emptying study. Date: February 08, 2022. Indication: 61-year-old male, abdominal pain. Comparison: None. Findings: 0.98 mCi of technetium labeled sulfur colloid was administered. Subsequent anterior and posterior scintigraphic images of the stomach were obtained over a 4 hour timeframe for calculation of gastric emptying. At 1 hour, there is approximately 29% gastric emptying. At 2 hours, there is approximately 36% gastric emptying. At 3 hours, there is approximately 42% gastric emptying. At 4 hours, there is approximately 65% gastric emptying. Impression: 1. Findings consistent with delayed gastric emptying. Dictated by: Dictated on workstation # [id number]
== END ==
LOC: CARD 07:00
PROVIDERS: ATTEND Nurse Practitioner
DX: K31.89 Other diseases of stomach and duodenum (principal); K21.9 Gastro-esophageal reflux disease without esophagitis
CPT/HCPCS: 78264; A9541

== ENCOUNTER 2022-02-10 21:58 | Emergency (ER) | payer MEDICARE, MEDICAID ==
--- NOTE | 2022-02-10 22:58 | ED Abdominal Pain ---
General Chief Complaint: Abdominal/GI Problems Stated Complaint: CHEST PAIN Source of Information: Patient Exam Limitations: No Limitations (CYNTHIA DUGAN STUDENT) History of Present Illness Date Seen by Provider: Feb 10, 2022 Time Seen by Provider: 22:45 Initial Comments Patient is a 61 year old male with pmh of HTN, HLP, CAD, Diabetes mellitus, GERD, and hiatal hernia who presents to the ED with a 3 hour history of epigastric abdominal pain. Reports the pain started at 8pm tonight. He reports the pain is stabbing and intermittent. Pain does not radiate anywhere. Reports he's never had pain this bad before. Took 2 hydrocodone's at home prior to presenting for the pain. Did not take any acid suppressors or tums tonight. Reports that at 830pm he went to the restroom to have a BM and had a large amount of bright red blood in the toilet. Reports his epigastric abdominal pain to be a 6/10 currently. Reports he had a few beers and some wine coolers today after his daughters wedding this afternoon. Denies chest pain, SOB, headache, dysuria, and dizziness. Denies nausea and vomiting. Takes ASA daily. Denies use of NSAID's. Timing/Duration: 1-3 Hours Severity/Quality: Severe, Sharp, Stabbing Location: Epigastric Radiation: No Radiation Activities at Onset: None Modifying Factors: Improves With Movement, Improves With Palpation Associated Symptoms: No Back Pain, No Chest Pain, No Fever/Chills, No Nausea/Vomiting, No Shortness of Air (CYNTHIA DUGAN MED STUDENT) Initial Comments I have seen and evaluated the patient, performed my own HPI, ROS and history and physical. I agree with the medical student's documentation. (LAXMI VOGEL MD) Allergies and Home Medications Allergies Coded Allergies: No Known Drug Allergies (Verified , 04/29/16) Patient Home Medication List Home Medication List Reviewed: Yes (LAXMI VOGEL MD) Albuterol Sulfate (Proair Hfa) 1 Puff Puff, 2 PUFF IH Q6H PRN for SHORTNESS OF BREATH, (Reported) Entered as Reported by: FABBY DAVIS on 11/04/21 1536 Aspirin (Aspirin EC) 81 Mg Tablet.dr, 81 MG PO DAILY, (Reported) Entered as Reported by: FABBY DAVIS on 11/04/21 153 Calcium Carbonate (Tums) 300 Mg Tab.chew, 300-600 MG PO Q6H PRN for INDIGESTION, (Reported) Entered as Reported by: FABBY DAVIS on 11/04/21 153 Canagliflozin (Invokana) 100 Mg Tablet, 100 MG PO DAILY, (Reported) Entered as Reported by: FABBY DAVIS on 11/04/21 153 Hydrocodone/Acetaminophen (Hydrocodone-Acetamin 10-325 mg) 1 Each Tablet, 1 EACH PO Q6H PRN for PAIN-MODERATE (5-7), (Reported) Entered as Reported by: FABBY DAVIS on 11/04/21 153 Mag Hydrox/Al Hydrox/Simeth (Mylanta Suspension) 30 Ml Oral.susp, 30 ML PO QID PRN for INDIGESTION, (Reported) Entered as Reported by: FABBY DAVIS on 11/04/21 154 Metformin HCl (Metformin HCl ER) 500 Mg Tab.er.24, 1,000 MG PO BID, (Reported) Entered as Reported by: FABBY DAVIS on 11/04/21 153 Metoprolol Succinate (Metoprolol Succinate) 100 Mg Tab.er.24h, 100 MG PO BID, (Reported) Entered as Reported by: FABBY DAVIS on 11/04/211535 Nitroglycerin (Nitroglycerin) 0.4 Mg Tab.subl, 0.4 MG SL UD PRN for CHEST PAIN, (Reported) Entered as Reported by: FABBY DAVIS on 11/04/211535 Pantoprazole Sodium (Pantoprazole Sodium) 20 Mg Tablet.dr, 20 MG PO DAILY, (Reported) Entered as Reported by: FABBY DAVIS on 11/04/211535 Pantoprazole Sodium (Pantoprazole Sodium) 40 Mg Tablet.dr, 40 MG PO DAILY Prescribed by: LAXMI VOGEL on 02/11/22 0207 Review of Systems Review of Systems Constitutional: No chills, No diaphoresis, No fever; malaise EENTM: Blurred Vision (chronic due to past optic nerve damage bilaterally); No Double Vision, No Nose Congestion Respiratory: Denies Cough, Denies Shortness of Air Cardiovascular: Denies Chest Pain, Denies Irregular Heart Rate, Denies Lightheadedness, Denies Palpitations, Denies Syncope Gastrointestinal: Denies Diarrhea, Denies Nausea, Denies Poor Appetite, Denies Vomiting; Other (blood in stool this evening bright red) Genitourinary: Denies Burning, Denies Discharge, Denies Frequency Musculoskeletal: no symptoms reported; No back pain, No joint pain Skin: no symptoms reported; No change in color, No change in hair/nails, No rash Psychiatric/Neurological: Denies No Symptoms Reported, Denies Anxiety, Denies Depressed, Denies Headache Endocrine: No Symptoms Reported; Denies Excessive Sweating, Denies Flushing Hematologic/Lymphatic: No Symptoms Reported; Denies Easy Bleeding, Denies Easy Bruising (CYNTHIA DUGAN [employer] STUDENT) All Other Systems Reviewed Negative Unless Noted: Yes (CYNTHIA DUGAN [employer] STUDENT) Past Cpffdax-Ackogb-Xqzexf Hx Patient Social History Tobacco Use?: No Smoking Status: Former Smoker (Quit smoking in 1994) Smokeless Tobacco Frequency: Current Everyday User Use of E-Cig and/or Vaping dev: No Use of E-Cig and/or Vaping Tiburcio: Never a User Substance use?: No Alcohol Use?: Yes Alcohol Frequency: Once in a while (CYNTHIA DUGAN [employer] STUDENT) Immunizations Up To Date Tetanus Booster (TDap): Less than 5yrs PED Vaccines UTD: Yes First/Initial COVID19 Vaccinat: 05/13/21 Second COVID19 Vaccination Tanner: 06/05/21 (CYNTHIA DUGAN [employer] STUDENT) Seasonal Allergies Seasonal Allergies: No (CYNTHIA DUGAN [employer] ERNESTO) Past Medical History Surgery/Hospitalization HX: Hypertension, Diabetes, High cholesterol, EGD 2018, Scar tissue in throat, GERD, former smoker, Stents, Heart Cath 2015, COPD, Arthritis, Gout, 1985 Right leg broke, 1981 broke back, Surgeries: Yes (hernia repair, Broken leg repair, R KNEE repair, HEART CATH) Abdominal, Cardiac, Orthopedic Respiratory: Yes (SOB AT END OF DAY) COPD Cardiac: Yes (HEART CATH-04/13, NO STENTS BUT CLEANED OUT ARTERY) Coronary Artery Disease, Heart Attack, High Cholesterol, Hypertension Neurological: Yes Stroke (Bilat optic nerve strokes) Reproductive Disorders: No Genitourinary: No Gastrointestinal: Yes Gastroesophageal Reflux, Hiatal Hernia Musculoskeletal: Yes (ARTHRITIS) Arthritis, Gout Endocrine: No Diabetes, Non-Insulin dep HEENT: Yes Loss of Vision: Bilateral Cancer: No Psychosocial: No Integumentary: No Blood Disorders: No Adverse Reaction/Blood Tranf: No (CYNTHIA DUGAN [employer] STUDENT) Family Medical History Cancer Cataract Dementia Family history: Alzheimer's disease Family history: Arthritis Family history: Breast disease Family history: Diabetes mellitus Family history: Glaucoma Family history: Hypertension History of drug abuse No Family History of: Abdominal aortic aneurysm Vimal's disease Alcoholism Aphasia Cancer of colon Chest pain Congenital heart disease Congestive heart failure Cystic fibrosis Dysphagia Family history: Allergy Family history: Asthma Family history: Cardiovascular disease Family history: Coronary thrombosis Family history: Gastrointestinal disease Family history: Osteoporosis Family history: Thyroid disorder Headache Hearing loss Heart disease Hereditary disease History of - anemia History of - disorder History of - respiratory disease Human immunodeficiency virus (HIV) seropositivity Hypercholesterolemia Infertile Kidney disease Malignant neoplasm of lung Myocardial infarction Parkinson's disease Prostate cancer Psychotic disorder Seizure disorder Stroke Tuberculosis Visual impairment Cancer, Diabetes, Hypertension (CYNTHIA DUGAN [employer] STUDENT) Physical Exam Vital Signs Vital Signs - First Documented 02/10/22 22:04 Temp 36.8 Pulse 80 B/P (MAP) 134/85 (101) Pulse Ox 97 O2 Delivery Room Air (LAXMI VOGEL MD) Vital Signs Capillary Refill : (CYNTHIA DUGAN [employer] STUDENT) Height/Weight/BMI Height: 5'8.00" Weight: 220lbs. 0.0oz. [id number]; 33.80 BMI Method:Stated General Appearance: WD/WN, no apparent distress, obese HEENT: PERRL/EOMI, pharynx normal Neck: non-tender, supple, normal inspection Respiratory: chest non-tender, no respiratory distress, decreased breath sounds Cardiovascular: normal peripheral pulses, regular rate, rhythm Peripheral Pulses: 2+ Radial Pulses (R), 2+ Radial Pulses (L) Gastrointestinal: normal bowel sounds, soft; No distended; tenderness (epigastric ) Extremities: normal range of motion, non-tender, no calf tenderness Back: normal inspection, no vertebral tenderness Neurologic/Psychiatric: alert, normal mood/affect, oriented x 3 Skin: normal color, warm/dry Lymphatic: no adenopathy (Head and Neck) (CYNTHIA DUGAN [employer] STUDENT) General Appearance: WD/WN, no apparent distress Respiratory: lungs clear, normal breath sounds, no respiratory distress Cardiovascular: regular rate, rhythm Gastrointestinal: soft, no pulsatile mass, tenderness (diffuse abdominal tenderness, with voluntary guarding, BS are present) Genital/Rectal: heme positive stool Extremities: normal range of motion Neurologic/Psychiatric: alert, normal mood/affect, oriented x 3 Skin: normal color, warm/dry (LAXMI VOGEL MD) Progress/Results/Core Measures Results/Orders Lab Results Laboratory Tests Test 02/10/22 22:20 Range/Units White Blood Count 12.6 H 4.3-11.0 10^3/uL Red Blood Count 4.87 4.30-5.52 10^6/uL Hemoglobin 14.0 13.3-17.7 g/dL Hematocrit 44 40-54 % Mean Corpuscular Volume 90 80-99 fL Mean Corpuscular Hemoglobin 29 25-34 pg Mean Corpuscular Hemoglobin Concent 32 32-36 g/dL Red Cell Distribution Width 13.3 10.0-14.5 % Platelet Count 342 130-400 10^3/uL Mean Platelet Volume 10.7 9.0-12.2 fL Immature Granulocyte % (Auto) 1 % Neutrophils (%) (Auto) 75 42-75 % Lymphocytes (%) (Auto) 16 12-44 % Monocytes (%) (Auto) 7 0-12 % Eosinophils (%) (Auto) 1 0-10 % Basophils (%) (Auto) 0 0-10 % Neutrophils # (Auto) 9.5 H 1.8-7.8 10^3/uL Lymphocytes # (Auto) 2.0 1.0-4.0 10^3/uL Monocytes # (Auto) 0.9 0.0-1.0 10^3/uL Eosinophils # (Auto) 0.2 0.0-0.3 10^3/uL Basophils # (Auto) 0.0 0.0-0.1 10^3/uL Immature Granulocyte # (Auto) 0.1 0.0-0.1 10^3/uL Sodium Level 132 L 135-145 MMOL/L Potassium Level 3.9 3.6-5.0 MMOL/L Chloride Level 103 98-107 MMOL/L Carbon Dioxide Level 14 L 21-32 MMOL/L Anion Gap 15 H 5-14 MMOL/L Blood Urea Nitrogen 22 H 7-18 MG/DL Creatinine 1.08 0.60-1.30 MG/DL Estimat Glomerular Filtration Rate 77 BUN/Creatinine Ratio 20 Glucose Level 119 H 70-105 MG/DL Calcium Level 9.3 8.5-10.1 MG/DL Corrected Calcium 8.9 8.5-10.1 MG/DL Total Bilirubin 0.5 0.1-1.0 MG/DL Aspartate Amino Transf (AST/SGOT) 12 5-34 U/L Alanine Aminotransferase (ALT/SGPT) 20 0-55 U/L Alkaline Phosphatase 63 40-136 U/L Total Protein 7.3 6.4-8.2 GM/DL Albumin 4.5 3.2-4.5 GM/DL Lipase 44 8-78 U/L (LAXMI VOGEL MD) My Orders Orders - LAXMI VOGEL MD Ed Iv/Invasive Line Start (02/10/22 23:04) Cbc With Automated Diff (02/10/22 23:04) Comprehensive Metabolic Panel (02/10/22 23:04) Lipase (02/10/22 23:04) Pantoprazole Injection (Protonix Injecti (02/10/22 23:15) Fecal Occult Bedside (02/10/22 23:04) Fentanyl Inj (Sublimaze Injection) (02/10/22 23:30) Ondansetron Injection (Zofran Injectio (02/10/22 23:30) Ct Abdomen/Pelvis Wo (02/10/22 23:29) (LAXMI VOGEL MD) Medications Given in ED Current Medications Medications Dose Ordered Sig/Natanael Route Start Time Stop Time Status Last Admin Dose Admin Fentanyl Citrate 50 mcg ONCE ONCE IVP 02/10/22 23:30 02/10/22 23:31 DC 02/10/22 23:45 50 MCG Ondansetron HCl 4 mg ONCE ONCE IVP 02/10/22 23:30 02/10/22 23:31 DC 02/10/22 23:45 4 MG Pantoprazole 80 mg ONCE ONCE IV 02/10/22 23:15 02/10/22 23:16 DC 02/10/22 23:17 80 MG (LAXMI VOGEL MD) Vital Signs/I&O 02/10/22 22:04 Temp 36.8 Pulse 80 B/P (MAP) 134/85 (101) Pulse Ox 97 O2 Delivery Room Air (LAXMI VOGEL MD) Progress Progress Note : Time: 02:00 Progress Note Patient re-evaluated. His pain is down to a "2". He is hungry. Has been up and ambulated to the bathroom. CT does not reveal any acute intra abdominal pathology. His VS are stable He is heme positive on NESTOR. Hgb is stable. I have recommended he follow up with Dr Velasco sooner than his scheduled surgery date, especially regarding the blood in his stool currently and this bout of abdominal pain. He also needs to followup with his primary care doctor. He is not chronically anticoagulated other than 2 baby aspirin daily. If his symptoms worsen - he will need to return for further evaluation. Home with nausea medications. Strict return precautions. He should get his blood counts checked again next Monday or Monday, (LAXMI VOGEL MD) Initial ECG Impression Date: Feb 11, 2022 Initial ECG Impression Time: 22:08 Initial ECG Rate: 83 Initial ECG Rhythm: Normal Sinus Initial ECG Intervals: Normal Initial ECG Impression: Normal (LAXMI VOGEL MD) Diagnostic Imaging Diagonstic Imaging: CT Plain Films/CT/US/NM/MRI: abdomen, pelvis Comments 1. Questionable mild stranding around the tail of the pancreas. Mild pancreatitis not excluded. Correlate with pancreatic enzymes (which are negative) 2 mild bilateral pelvocaliectasis no ureteral stones noted. 3. retrocecal appendix measures slightly larger at 8 or 9 mm but there is no significant inflammation and no appendicolith. This interpretation per stat rad (LAXMI VOGEL MD) Departure Impression Primary Impression: Abdominal pain Qualified Codes: R10.84 - Generalized abdominal pain Additional Impression: Blood in stool Disposition: 01 HOME, SELF-CARE Condition: Improved Departure-Patient Inst. Decision time for Depature: 02:04 (LAXMI VOGEL MD) Referrals: [facility] (PCP/Family) Primary Care Physician Patient Instructions: Gastrointestinal Bleeding Add. Discharge Instructions: You need to follow up with [facility] on Monday. It would be a good thing to have your Blood Count re-checked next week due to the blood in your stools. Please come back to the Emergency Department if you have any worsening pain, ESPECIALLY with fever or lightheadedness/passing out spell. Call Dr Velasco's office this morning to let them know you were seen in the ER tonight and that you have blood in your stool. Increase your Pantoprazole to 40mg once a day from 20mg once a day. Scripts Pantoprazole Sodium (Pantoprazole Sodium) 40 Mg Tablet. 40 MG PO DAILY for 28 Days, #28 TAB Prov: LAXMI VOGEL MD 02/11/22 Verification and Attestation of Medical Student E/M Service A medical student performed and documented this service in my presence. I reviewed and verified all information documented by the medical student and made modifications to such information, when appropriate. I personally performed the physical exam and medical decision making. Laxmi Vogel, Feb 11, 2022,02:07 (LAXMI VOGEL MD) Copy Copies To 1: ALIVIA EMANUEL LUKE MED STUDENT Feb 10, 2022 22:58 LAXMI VOGEL MD Feb 11, 2022 00:10
[2022-02-10] MEDS ORDERED: PANTOPRAZOLE 40 MG (PROTONIX) VIAL IV ONE (23:15)
[2022-02-10 23:23] LABS: BASOPHILS % (AUTO) 0 % (0-10); EOSINOPHILS # (AUTO) 0.2 10^3/uL (0.0-0.3); EOSINOPHILS % (AUTO) 1 % (0-10); HEMATOCRIT 44 % (40-54); LYMPHOCYTES % (AUTO) 16 % (12-44); MEAN CORPUSCULAR HEMOGLOBIN 29 pg (25-34); MEAN CORPUSCULAR HGB CONC 32 g/dL (32-36); MEAN CORPUSCULAR VOLUME 90 fL (80-99); MEAN PLATELET VOLUME 10.7 fL (9.0-12.2); MONOCYTES # (AUTO) 0.9 10^3/uL (0.0-1.0); MONOCYTES % (AUTO) 7 % (0-12); NEUTROPHILS # (AUTO) 9.5 10^3/uL (1.8-7.8); NEUTROPHILS % (AUTO) 75 % (42-75); PLATELET COUNT 342 10^3/uL (130-400); WHITE BLOOD COUNT 12.6 10^3/uL (4.3-11.0)
[2022-02-10] MEDS ORDERED: fentaNYL INJ 100 MCG/2 ML AMP IVP ONE (23:30)
[2022-02-10] MEDS ORDERED: ONDANSETRON 4 MG/2 ML (SDV) Z0FRAN IVP ONE (23:30)
[2022-02-10 23:40] LABS: ALBUMIN 4.5 GM/DL (3.2-4.5); BILIRUBIN,TOTAL 0.5 MG/DL (0.1-1.0); CALCIUM 9.3 MG/DL (8.5-10.1); CREATININE SERUM 1.08 MG/DL (0.60-1.30); POTASSIUM 3.9 MMOL/L (3.6-5.0); TOTAL PROTEIN 7.3 GM/DL (6.4-8.2)
[2022-02-11] MEDS ORDERED: PANT40TA52 PO (02:07)
[2022-02-11 02:13] VITALS: BP 130/76
--- NOTE | 2022-02-11 06:54 | Diagnostic Imaging Report ---
INDICATION: Abdominal pain and bloody stool TECHNIQUE: Multiple contiguous axial images were obtained through the abdomen and pelvis without the use of intravenous contrast. Auto Exposure Controls were utilized during the CT exam to meet ALARA standards for radiation dose reduction. Comparison is made to 04/04/2013. Visualized portions of the lung bases are clear. There were no pleural fluid collections. There was no free intraperitoneal air. The liver shows no focal lesion without contrast. Gallbladder appears normal. The spleen, adrenals, and retroperitoneum appear unremarkable. The pancreas shows some questionable mild fat stranding about the pancreatic tail, early pancreatitis cannot be excluded, correlate with pancreatic enzymes. There is no renal stone or mass. There is slight caliectasis of both kidneys. Urinary bladder is mildly distended. There is no pelvic mass or lymphadenopathy. Visualized bowel loops show no sign of obstruction or focal bowel wall thickening. There are surgical clips in the right lower quadrant. The appendix is borderline in size but shows no inflammatory changes. IMPRESSION: There is slight stranding of the fat about the pancreatic tail, question very early pancreatitis, correlate with pancreatic enzymes. There is slight atelectasis in both kidneys without stone or mass. The appendix is borderline in size but shows no inflammatory changes. There is no sign of bowel obstruction. Dictated by: Dictated on workstation # [id number]
== END 2022-02-11 02:17 | disposition home or self-care (01) ==
LOC: EDUNIT# 21:58 → ER 22:00
DX: K92.1 Melena (principal); E66.9 Obesity, unspecified; Z68.33 Body mass index [BMI] 33.0-33.9, adult; Z87.891 Personal history of nicotine dependence
CPT/HCPCS: 36415; 74176; 80053; 82274; 83690; 85025; 93005